=== PATIENT | male | born 1945 | race Caucasian/White ===

== ENCOUNTER 2018-05-06 17:12 | Observation (INO) | payer MEDICARE ==
[2018-05-06] MEDS ORDERED: Ondansetron 4 MG/2 ML SDV IVPUSH ONE (17:24)
--- NOTE | 2018-05-06 17:45 | EDM.PDOC ---
ED HPI GENERAL MEDICAL PROBLEM - General Chief Complaint: Fever Stated Complaint: [facility] Time Seen by Provider: 05/06/18 17:30 Source of Information: Reports: Patient, EMS Notes Reviewed, RN Notes Reviewed History Limitations: Reports: No Limitations - History of Present Illness INITIAL COMMENTS - FREE TEXT/NARRATIVE: Patient is a 72 year old male resident of [facility], who presents to the ED via [facility] for the evaluation of a fever/vomiting. [place] notes state that this started this morning. The patient notes that this started this afternoon. He has had 2-3 big emesis episodes since then. He has not been able to keep much for food or fluids. He states that his last bowel movement was yesterday and this was normal for him. He states that he has been peeing okay as well. He denies chest pain, shortness of breath, cough, abdominal pain. He does admit to nausea/vomiting, and was told by nursing staff that he had a fever , but he does not feel as if he has a fever. He states that he has not had any recent sick contacts, even living in a [place]. He states that he has never had any abdominal surgeries, so he still has his gallbladder and appendix. - Related Data Allergies Allergy/AdvReac Type Severity Reaction Status Date / Time No Known Allergies Allergy Verified 05/07/18 02:02 Home Meds: Home Meds Acetaminophen [Tylenol] 650 mg PO BEDTIME 01/19/15 [History] Acetaminophen [Tylenol] 650 mg PO BID 01/19/15 [History] Apixaban [Eliquis] 5 mg PO BID 01/19/15 [History] Carvedilol 12.5 mg PO BID 01/19/15 [History] Cholecalciferol (Vitamin D3) [Vitamin D3] 5,000 unit PO DAILY 01/19/15 [History] DULoxetine [Cymbalta] 90 mg PO DAILY 01/19/15 [History] Fenofibrate Nanocrystallized [Tricor] 145 mg PO DAILY 01/19/15 [History] Ferrous Gluconate 324 mg PO DAILY 01/19/15 [History] Finasteride [Proscar] 5 mg PO BEDTIME 01/19/15 [History] Furosemide 40 mg PO BID 01/19/15 [History] L Acidophil/B Lactis/B Longum [Florajen3] 460 mg PO DAILY 01/19/15 [History] Multivitamin [Daily Multiple Vitamin] 1 tab PO DAILY 01/19/15 [History] Potassium Chloride [Klor-Con] 20 meq PO DAILY 01/19/15 [History] Simvastatin [Zocor] 20 mg PO BEDTIME 01/19/15 [History] Spironolactone 50 mg PO DAILY 01/19/15 [History] Tamsulosin [Flomax] 0.4 mg PO BEDTIME 01/19/15 [History] Digoxin [Lanoxin] 125 mcg PO DAILY 01/17/18 [History] Lisinopril 5 mg PO DAILY 01/17/18 [History] Bisacodyl [Dulcolax] 5 mg PO DAILY PRN #30 tablet 01/21/18 [Rx] Docusate Sodium [Colace] 100 mg PO BID PRN #30 01/21/18 [Rx] Gabapentin [Neurontin] 300 mg PO BEDTIME #30 capsule 01/21/18 [Rx] glipiZIDE [Glucotrol XL] 2.5 mg PO BID #60 tab.er 01/21/18 [Rx] Aspirin [Adult Aspirin] 81 mg PO DAILY 05/07/18 [History] Past Medical History Cardiovascular History: Reports: Heart Failure, High Cholesterol, Hypertension, PVD, SOB on Exertion, Other (See Below) Genitourinary History: Reports: BPH, Prostate Disorder, Urinary Incontinence Psychiatric History: Reports: Depression Endocrine/Metabolic History: Reports: Diabetes, Type II Dermatologic History: Reports: Other (See Below) Other Dermatologic History: MRSA infection R) foot - Infectious Disease History Infectious Disease History: Reports: Chicken Pox, Measles, MRSA, Mumps, Rubella , Scarlet Fever Social & Family History - Family History Family Medical History: Noncontributory - Tobacco Use Smoking Status *Q: Never Smoker - Caffeine Use Caffeine Use: Reports: None - Recreational Drug Use Recreational Drug Use: No - Living Situation & Occupation Living situation: Reports: Single, Alone, Other Occupation: Retired ED ROS ENT - Review of Systems Review Of Systems: See Below Constitutional: Reports: Fever. Denies: Chills, Malaise, Weakness HEENT: Reports: No Symptoms Respiratory: Reports: No Symptoms Cardiovascular: Reports: No Symptoms Endocrine: Reports: No Symptoms GI/Abdominal: Reports: Nausea, Vomiting. Denies: Abdominal Pain, Constipation, Diarrhea, Decreased Appetite : Reports: No Symptoms Musculoskeletal: Reports: No Symptoms Skin: Reports: No Symptoms Neurological: Reports: No Symptoms Psychiatric: Reports: No Symptoms Hematologic/Lymphatic: Reports: No Symptoms Immunologic: Reports: No Symptoms ED EXAM, ENT - Physical Exam Exam: See Below Exam Limited By: No Limitations General Appearance: Alert, WD/WN, No Apparent Distress Eye Exam: Bilateral Eye: EOMI, Normal Inspection, PERRL Ears: Normal External Exam Nose: Normal Inspection Mouth/Throat: Normal Inspection, Normal Oropharynx, Normal Teeth Head: Atraumatic, Normocephalic Neck: Normal Inspection Respiratory/Chest: No Respiratory Distress, Lungs Clear, Normal Breath Sounds, No Accessory Muscle Use, Chest Non-Tender Cardiovascular: Normal Peripheral Pulses, Regular Rate, Rhythm, No JVD, No Murmur GI/Abdominal: Normal Bowel Sounds, Soft, Non-Tender, No Distention, No Mass Extremities: Normal Inspection, Normal Capillary Refill, Pedal Edema (bilateral pedal edema, 2+ pitting) Neurological: Alert, Oriented, Normal Cognition, No Motor/Sensory Deficits Psychiatric: Normal Affect, Normal Mood Skin: Warm, Dry, Intact, Normal Color, Other (several darkened ring like lesions diffusely scattered over his arms, he states this is normal and doesn't want to talk about it.) EKG INTERPRETATION EKG Date: 05/06/18 Time: 21:04 Rhythm: A-Fib Rate (Beats/Min): 88 (calcuated rate of 60-105) [place]: Normal P-Wave: Present QRS: Normal ST-T: Normal QT: Normal Comparison: Other: (previous EKG was looked at and he atrial fibrillation is not new to this patient.) EKG Interpretation Comments: reviewed with Dr. Vera Course - Vital Signs Last Recorded V/S: Last Vital Signs Temp 97.5 F 05/07/18 14:50 Pulse 106 H 05/07/18 14:50 Resp 16 05/07/18 14:50 BP 113/53 L 05/07/18 14:50 Pulse Ox 96 05/07/18 14:50 - Orders/Labs/Meds Orders: Active Orders 24 hr Category Date Time Status Urinary Catheter Insertion [Insert Urinary Catheter] [ Care 05/06/18 19:35 Ordered OM.PC] Stat CULTURE URINE [RM] Stat Lab 05/06/18 19:35 Results Medication Orders Acetaminophen (Tylenol) 650 mg PO Q4H PRN PRN Reason: Pain/Fever Apixaban (Eliquis) 5 mg PO BID [facility] Aspirin (Halfprin) 81 mg PO DAILY [facility] Last Admin: 05/07/18 16:45 Dose: 81 mg Carvedilol (Coreg) 12.5 mg PO BID [facility] Digoxin (Lanoxin) 125 mcg PO DAILY@1200 [facility] Duloxetine HCl (Cymbalta) 90 mg PO DAILY [facility] Enoxaparin Sodium (Lovenox) 40 mg SUBCUT Q24H [facility] Last Admin: 05/07/18 09:05 Dose: 40 mg Fenofibrate (Tricor) 145 mg PO DAILY [facility] Finasteride (Proscar) 5 mg PO BEDTIME [facility] Gabapentin (Neurontin) 300 mg PO BEDTIME [facility] Glipizide (Glucotrol Xl) 2.5 mg PO BID [facility] Piperacillin Sod/Tazobactam (Sod 4.5 gm/ Sodium Chloride) 100 mls @ 25 mls/hr IV Q8H [facility] Last Admin: 05/07/18 12:15 Dose: 25 mls/hr Insulin Human Lispro (Humalog) 0 unit SUBCUT QIDACANDBED [facility]; Protocol Last Admin: 05/07/18 17:44 Dose: 8 units Admin: 05/07/18 12:16 Dose: 6 units Admin: 05/07/18 09:12 Dose: 4 units Metoprolol Tartrate (Lopressor) 5 mg IVPUSH Q6H PRN PRN Reason: HR>110 Non-Formulary Medication (Ferrous Gluconate [Ferrous Gluconate]) 324 mg PO DAILY [facility] Non-Formulary Medication (L Acidophil/B Lactis/B Longum [Florajen3]) 460 mg PO DAILY [facility] Ondansetron HCl (Zofran) 4 mg IVPUSH Q8H PRN PRN Reason: Nausea Simvastatin (Zocor) 20 mg PO BEDTIME [facility] Spironolactone (Aldactone) 50 mg PO DAILY [facility] Last Admin: 05/07/18 17:45 Dose: 0.4 mg Labs: Laboratory Tests 05/06/18 05/06/18 05/06/18 Range/Units 17:38 17:38 17:38 WBC 19.60 H (4.23-9.07) K/mm3 RBC 4.43 L (4.63-6.08) M/mm3 Hgb 13.0 L (13.7-17.5) gm/L Hct 40.4 (40.1-51.0) % MCV 91.2 (79.0-92.2) fl MCH 29.3 (25.7-32.2) pg MCHC 32.2 (32.2-35.5) g/dl RDW Std Deviation 44.4 H (35.1-43.9) fL Plt Count 149 L (163-337) K/mm3 MPV 12.2 (9.4-12.3) fl Neutrophils % (Manual) 89 H (40-60) % Band Neutrophils % 4 (0-10) % Lymphocytes % (Manual) 3 L (20-40) % Atypical Lymphs % 0 % Monocytes % (Manual) 4 (2-10) % Eosinophils % (Manual) 0 L (0.8-7.0) % Basophils % (Manual) 0 L (0.2-1.2) Platelet Estimate Adequate RBC Morph Comment Normal D-Dimer, Quantitative (0.19-0.50) mg/L Sodium 136 (136-145) mEq/L Potassium 4.8 (3.5-5.1) mEq/L Chloride 99 (98-107) mEq/L Carbon Dioxide 26 (21-32) mEq/L Anion Gap 15.8 H (5-15) BUN 34 H (7-18) mg/dL Creatinine 1.5 H (0.7-1.3) mg/dL Est Cr Clr Drug Dosing 59.86 mL/min Estimated GFR (MDRD) 46 (>60) mL/min BUN/Creatinine Ratio 22.7 H (14-18) Glucose 284 H (83-115) mg/dL Lactic Acid (0.4-2.0) mmol/L Calcium 9.5 (8.5-10.1) mg/dL Magnesium 2.0 (1.8-2.4) mg/dl Total Bilirubin 0.7 (0.2-1.0) mg/dL AST 32 (15-37) U/L ALT 37 (16-63) U/L Alkaline Phosphatase 62 (46-116) U/L Total Protein 7.2 (6.4-8.2) g/dl Albumin 3.5 (3.4-5.0) g/dl Globulin 3.7 gm/dL Albumin/Globulin Ratio 1.0 (1-2) Urine Color (Yellow) Urine Appearance (Clear) Urine pH (5.0-8.0) Ur Specific [place] (1.005-1.030) Urine Protein (Negative) Urine Glucose (UA) (Negative) Urine Ketones (Negative) Urine Occult Blood (Negative) Urine Nitrite (Negative) Urine Bilirubin (Negative) Urine Urobilinogen (0.2-1.0) Ur Leukocyte Esterase (Negative) Urine RBC (0-5) /hpf Urine WBC (0-5) /hpf Ur Epithelial Cells (0-5) /hpf Urine Bacteria (FEW) /hpf Hyaline Casts (0-5) /lpf Urine Mucus (FEW) /hpf Mycoplasma pneumon IgM Negative (NEGATIVE) 05/06/18 05/06/18 05/06/18 Range/Units 19:35 20:08 22:20 WBC (4.23-9.07) K/mm3 RBC (4.63-6.08) M/mm3 Hgb (13.7-17.5) gm/L Hct (40.1-51.0) % MCV (79.0-92.2) fl MCH (25.7-32.2) pg MCHC (32.2-35.5) g/dl RDW Std Deviation (35.1-43.9) fL Plt Count (163-337) K/mm3 MPV (9.4-12.3) fl Neutrophils % (Manual) (40-60) % Band Neutrophils % (0-10) % Lymphocytes % (Manual) (20-40) % Atypical Lymphs % % Monocytes % (Manual) (2-10) % Eosinophils % (Manual) (0.8-7.0) % Basophils % (Manual) (0.2-1.2) Platelet Estimate RBC Morph Comment D-Dimer, Quantitative 0.44 (0.19-0.50) mg/L Sodium (136-145) mEq/L Potassium (3.5-5.1) mEq/L Chloride (98-107) mEq/L Carbon Dioxide (21-32) mEq/L Anion Gap (5-15) BUN (7-18) mg/dL Creatinine (0.7-1.3) mg/dL Est Cr Clr Drug Dosing mL/min Estimated GFR (MDRD) (>60) mL/min BUN/Creatinine Ratio (14-18) Glucose (83-115) mg/dL Lactic Acid 2.2 H (0.4-2.0) mmol/L Calcium (8.5-10.1) mg/dL Magnesium (1.8-2.4) mg/dl Total Bilirubin (0.2-1.0) mg/dL AST (15-37) U/L ALT (16-63) U/L Alkaline Phosphatase (46-116) U/L Total Protein (6.4-8.2) g/dl Albumin (3.4-5.0) g/dl Globulin gm/dL Albumin/Globulin Ratio (1-2) Urine Color Yellow (Yellow) Urine Appearance Clear (Clear) Urine pH 5.5 (5.0-8.0) Ur Specific [place] 1.025 (1.005-1.030) Urine Protein Negative (Negative) Urine Glucose (UA) 1+ H (Negative) Urine Ketones Negative (Negative) Urine Occult Blood Negative (Negative) Urine Nitrite Negative (Negative) Urine Bilirubin Negative (Negative) Urine Urobilinogen 0.2 (0.2-1.0) Ur Leukocyte Esterase Negative (Negative) Urine RBC 0-5 (0-5) /hpf Urine WBC 0-5 (0-5) /hpf Ur Epithelial Cells Not seen (0-5) /hpf Urine Bacteria Few (FEW) /hpf Hyaline Casts 0-5 (0-5) /lpf Urine Mucus Few (FEW) /hpf Mycoplasma pneumon IgM (NEGATIVE) Meds: Medications Generic Name Dose Route Start Last Admin Trade Name Freq PRN Reason Stop Dose Admin Acetaminophen 650 mg 05/07/18 03:19 Tylenol PO Q4H PRN Pain/Fever Apixaban 5 mg 05/07/18 21:00 Eliquis PO BID [facility] Aspirin 81 mg 05/07/18 15:00 05/07/18 16:45 Halfprin PO 81 mg DAILY [facility] Administration Carvedilol 12.5 mg 05/07/18 21:00 Coreg PO BID [facility] Digoxin 125 mcg 05/08/18 12:00 Lanoxin PO DAILY@1200 [facility] Duloxetine HCl 90 mg 05/08/18 09:00 Cymbalta PO DAILY [facility] Enoxaparin Sodium 40 mg 05/07/18 09:00 05/07/18 09:05 Lovenox SUBCUT 40 mg Q24H [facility] Administration Fenofibrate 145 mg 05/08/18 09:00 Tricor PO DAILY [facility] Finasteride 5 mg 05/07/18 21:00 Proscar PO BEDTIME [facility] Gabapentin 300 mg 05/07/18 21:00 Neurontin PO BEDTIME [facility] Glipizide 2.5 mg 05/07/18 21:00 Glucotrol Xl PO BID [facility] Piperacillin Sod/Tazobactam 100 mls @ 25 mls/hr 05/07/18 13:00 05/07/18 12:15 Sod 4.5 gm/ Sodium Chloride IV 25 mls/hr Q8H [facility] Administration Insulin Human Lispro 0 unit 05/07/18 07:00 05/07/18 17:44 Humalog SUBCUT 8 units QIDACANDBED [facility] Administration Protocol Metoprolol Tartrate 5 mg 05/07/18 17:08 Lopressor IVPUSH Q6H PRN HR>110 Non-Formulary Medication 324 mg 05/08/18 09:00 Ferrous Gluconate [Ferrous Gluconate] PO DAILY [facility] Non-Formulary Medication 460 mg 05/08/18 09:00 L Acidophil/B Lactis/B Longum [Florajen3] PO DAILY [facility] Ondansetron HCl 4 mg 05/07/18 03:19 Zofran IVPUSH Q8H PRN Nausea Simvastatin 20 mg 05/07/18 21:00 Zocor PO BEDTIME [facility] Spironolactone 50 mg 05/08/18 09:00 Aldactone PO DAILY [facility] Tamsulosin HCl 0.4 mg 05/07/18 18:00 05/07/18 17:45 Flomax PO 0.4 mg BIDPC [facility] Administration Discontinued Medications Generic Name Dose Route Start Last Admin Trade Name Freq PRN Reason Stop Dose Admin Acetaminophen 650 mg 05/06/18 18:10 05/06/18 18:23 Tylenol PO 05/06/18 18:11 650 mg NOW ONE Administration Piperacillin Sod/Tazobactam 100 mls @ 200 mls/hr 05/06/18 20:24 05/06/18 21: 11 Sod 4.5 gm/ Sodium Chloride IV 05/06/18 20:53 200 mls/hr Q6H ONE Administration Sodium Chloride 1,000 mls @ 200 mls/hr 05/06/18 21:15 05/06/18 21:11 Normal Saline IV 200 mls/hr ASDIRECTED [place] Administration Sodium Chloride Confirm 05/06/18 21:04 05/07/18 00:20 Normal Saline Administered 05/06/18 21:05 Not Given Dose 100 mls @ as directed .ROUTE .STK-MED ONE Piperacillin Sod/Tazobactam 100 mls @ 200 mls/hr 05/07/18 03:00 05/07/18 09: 17 Sod 4.5 gm/ Sodium Chloride IV Not Given Q6H [place] Sodium Chloride 1,000 mls @ 200 mls/hr 05/06/18 23:45 Normal Saline IV ASDIRECTED [place] Sodium Chloride 1,000 mls @ 999 mls/hr 05/07/18 03:05 05/07/18 03:34 Normal Saline IV 05/07/18 04:05 999 mls/hr ONETIME ONE Administration Sodium Chloride 1,000 mls @ 150 mls/hr 05/07/18 04:15 05/07/18 04:49 Normal Saline IV 05/07/18 09:00 150 mls/hr ASDIRECTED [place] Administration Sodium Chloride 1,000 mls @ 75 mls/hr 05/07/18 09:00 05/07/18 12:39 Normal [place]ine IV 05/07/18 16:00 75 mls/hr ASDIRECTED [place] Administration Sodium Chloride Confirm 05/07/18 03:31 05/07/18 05:44 Normal [place] Administered 05/07/18 03:32 Not Given Dose 100 mls @ as directed .ROUTE .STK-MED ONE Iopamidol 100 ml 05/06/18 22:28 05/06/18 22:44 Isovue-300 (61%) IVPUSH 05/06/18 22:29 100 ml ONETIME ONE Administration Metoclopramide HCl 10 mg 05/06/18 19:04 05/06/18 19:10 Reglan IVPUSH 05/06/18 19:05 10 mg ONETIME ONE Administration Ondansetron HCl 4 mg 05/06/18 17:24 05/06/18 17:45 Zofran IVPUSH 05/06/18 17:25 4 mg ONETIME ONE Administration Piperacillin Sod/Tazobactam Sod Confirm 05/06/18 21:02 05/07/18 00:20 Piperacil-Tazobact Administered 05/06/18 21:03 Not Given Dose 4.5 gm .ROUTE .STK-MED ONE Piperacillin Sod/Tazobactam Sod Confirm 05/07/18 08:58 05/07/18 09:13 Piperacil-Tazobact Administered 05/07/18 08:59 4.5 gm Dose Administration 4.5 gm .ROUTE .STK-MED ONE Tamsulosin HCl 0.4 mg 05/07/18 21:00 Flomax PO BEDTIME [facility] - Re-Assessments/Exams Free Text/Narrative Re-Assessment/Exam: 05/06/18 17:53 Pt presents to the ED for the evaluation vomiting/fever that started today. Have ordered CBC, CMP, magnesium, Influenza screen, UA, CXR and Abdominal x-ray for further evaluation. 05/06/18 18:52 His POA has arrived and states that Ez is a DNR, and should not have extraordinary measures done to save his life. Influenza screen was negative, His WBC is elevated at 19. His CXR and abdomen X-ray is not impressive for any abnormality. These were reviewed with Dr. Lafleur. Official radiology read is pending. He has requested water and something to eat. I have given him water and told the nurse to try some carrington crackers with peanut butter to see if he can tolerate this. The POA has also made it known that he has had issues with his in the past and it was a urinary infection, but she also notes that he has a ulcer on the bottom of his right foot. I did examine this and it does not look reddened or infected at this point. I have ordered blood cultures x 2 and a lactic acid for evaluation of possible sepsis. 05/06/18 20:29 Source of the increased WBC is still unknown at this time, his UA was negative for infection. I did have Dr. Vera look at the sore on the patient's foot, and he does not think that this looks infected either. I have started him on Zosyn, as per Dr. Vera's recommendation in the meantime. I did re-examine his abdomen and did a more extensive look at his skin and he does not have any abdomen tenderness, nor can I find any other open sores to suggest a source of infection. I will call Dr. Ramachandran in consultation, as he cannot be sent home safely at this point. 05/06/18 20:47 Dr. Ramachandran is here to see the patient, she requested that a EKG, d-dimer, CRP, urine culture and a sputum culture if he is able, be ordered. She suggested that an oral or rectal temperature be obtained, and the possibility for abdomen CT. I did order IV fluids to be started at 200mLs/hr for the abdomen CT with contrast. At this time, Dr. Ramachandran has not given a definitive yes or no answer to admission to this hospital. 05/06/18 22:53 D-dimer is not elevated, and is 0.44. EKG demonstrated atrial fibrillation, but this is not new for the patient, Lactic acid is at 2.2. 05/06/18 23:33 CT was done and demonstrates: 1. Questionable cholelithiasis 2. Cystic structure lying adjacent to the common bile duct measuring 5.8cm. Differential considerations would include a choledochocele vs duplication cyst. 3. 9 mm nonobstructing stone mid aspect of left kidney, no hydronephrosis. 4. Enhancing fat containing nodule in the Right kidney measuring 2cm consistent with an angiomyolipoma. 5. Normal appearing appendix in right lower quadrant. Dr. Ramachandran was made aware of the CT results, she requested that I get a urology referral for the 9mm stone. I did get a hold of Dr. Srivastava in [place] and states that this can be done as an outpatient basis. Dr. Ramachandran has accepted the patient as Observation status, and requests that I order another dose of Zosyn Q6 from his last dose, and that he finish the bag of fluids he has already, and order another liter to start after that. Departure - Departure Time of Disposition: 23:30 Disposition: Refer to Observation Condition: Fair Clinical Impression: Elevated temperature due to infection - Discharge Information - My Orders Last 24 Hours: My Active Orders 05/06/18 19:35 Urinary Catheter Insertion [Insert Urinary Catheter] [OM.PC] Stat CULTURE URINE [RM] Stat - Assessment/Plan Last 24 Hours: My Active Orders 05/06/18 19:35 Urinary Catheter Insertion [Insert Urinary Catheter] [OM.PC] Stat CULTURE URINE [RM] Stat
[2018-05-06] MEDS ORDERED: Acetaminophen 325 MG Tab PO ONE (18:10)
[2018-05-06] MEDS ORDERED: Metoclopramide 10 MG/2 ML SDV IVPUSH ONE (19:04)
[2018-05-06] MEDS ORDERED: Piperacillin/Tazobactam 4.5 GM in Sodium Chloride 0.9% 100 ML IV ONE (20:24)
[2018-05-06] MEDS ORDERED: Piperacillin/Tazobactam 4.5 GM AdvVial ONE (21:02)
[2018-05-06] MEDS ORDERED: Sodium Chloride 0.9% 100 ML ONE (21:04)
[2018-05-06] MEDS ORDERED: Sodium Chloride 0.9% 1,000 ML IV SCH ×2 (21:15→23:45)
[2018-05-06] MEDS ORDERED: Iopamidol 612 MG/ML 100 ML Bottle IVPUSH ONE (22:28)
[2018-05-07] MEDS ORDERED: Sodium Chloride 0.9% 1,000 ML IV ONE (03:05)
[2018-05-07] MEDS ORDERED: Acetaminophen 325 MG Tab PO PRN (03:19)
[2018-05-07] MEDS ORDERED: Ondansetron 4 MG/2 ML SDV IVPUSH PRN (03:19)
[2018-05-07] MEDS ORDERED: Sodium Chloride 0.9% 100 ML ONE ×2 (03:31→09:01)
[2018-05-07] MEDS ORDERED: Sodium Chloride 0.9% 1,000 ML IV SCH ×2 (04:15→09:00)
[2018-05-07] MEDS: Piperacillin/Tazobactam 4.5 GM in Sodium Chloride 0.9% 100 ML IV SCH ×4 (04:50→22:20)
[2018-05-07] MEDS ORDERED: Piperacillin/Tazobactam 4.5 GM AdvVial ONE (08:58)
[2018-05-07] MEDS: Enoxaparin 40 MG/0.4 ML Syringe SUBCUT SCH (09:05)
[2018-05-07] MEDS: Insulin Lispro 100 UNIT/ML 10 ML VIAL SUBCUT SCH ×4 (09:12→22:19)
--- NOTE | 2018-05-07 10:10 | PCM.HP ---
H&P History of Present Illness - General Date of Service: 05/07/18 Admit Problem/Dx: Admission Diagnosis/Problem Admission Diagnosis/Problem Elevated temperature due to infection Source of Information: Patient, Provider History Limitations: Reports: No Limitations - History of Present Illness Initial Comments - Free Text/Narative: 72 year old male presented with nausea and reportedly a temporal fever of 102.0 F. This was documented in the ED, he requested a meal during his ED evaluation , and was able to tolerate it despite complaining of nausea/vomiting prior to admission. An infectious work up was initiated, and a CT of the abdomen/pelvis documented a renal stone, nonobstructive measuring 9 mm. The UA obtained was not suggestive of a UTI, or hematuria. He has not had difficulty passing urine. Lab results document an elevated WBCs, 19.6 with bands, 4%. The patient will be admitted as observation, code status is DNR. Onset of Symptoms: Reports: Gradual Symptom Onset Date: 05/06/18 Duration of Symptoms: Reports: Hour(s):, Getting Worse Location: Reports: Abdomen, Generalized Severity: Moderate Improves with: Reports: Medication Worsens with: Reports: None Associated Symptoms: Reports: Fever/Chills, Malaise, Nausea/Vomiting, Weakness - Related Data Allergies/Adverse Reactions: Allergies Allergy/AdvReac Type Severity Reaction Status Date / Time No Known Allergies Allergy Verified 05/07/18 02:02 Home Medications: Home Meds Acetaminophen [Tylenol] 650 mg PO BEDTIME 01/19/15 [History] Acetaminophen [Tylenol] 650 mg PO BID 01/19/15 [History] Apixaban [Eliquis] 5 mg PO BID 01/19/15 [History] Carvedilol 12.5 mg PO BID 01/19/15 [History] Cholecalciferol (Vitamin D3) [Vitamin D3] 5,000 unit PO DAILY 01/19/15 [History] DULoxetine [Cymbalta] 90 mg PO DAILY 01/19/15 [History] Fenofibrate Nanocrystallized [Tricor] 145 mg PO DAILY 01/19/15 [History] Ferrous Gluconate 324 mg PO DAILY 01/19/15 [History] Finasteride [Proscar] 5 mg PO BEDTIME 01/19/15 [History] Furosemide 40 mg PO BID 01/19/15 [History] L Acidophil/B Lactis/B Longum [Florajen3] 460 mg PO DAILY 01/19/15 [History] Multivitamin [Daily Multiple Vitamin] 1 tab PO DAILY 01/19/15 [History] Potassium Chloride [Klor-Con] 20 meq PO DAILY 01/19/15 [History] Simvastatin [Zocor] 20 mg PO BEDTIME 01/19/15 [History] Spironolactone 50 mg PO DAILY 01/19/15 [History] Tamsulosin [Flomax] 0.4 mg PO BEDTIME 01/19/15 [History] Digoxin [Lanoxin] 125 mcg PO DAILY 01/17/18 [History] Lisinopril 5 mg PO DAILY 01/17/18 [History] Bisacodyl [Dulcolax] 5 mg PO DAILY PRN #30 tablet 01/21/18 [Rx] Docusate Sodium [Colace] 100 mg PO BID PRN #30 01/21/18 [Rx] Gabapentin [Neurontin] 300 mg PO BEDTIME #30 capsule 01/21/18 [Rx] glipiZIDE [Glucotrol XL] 2.5 mg PO BID #60 tab.er 01/21/18 [Rx] Aspirin [Adult Aspirin] 81 mg PO DAILY 05/07/18 [History] Past Medical History Cardiovascular History: Reports: Heart Failure, High Cholesterol, Hypertension, PVD, SOB on Exertion, Other (See Below) Genitourinary History: Reports: BPH, Prostate Disorder, Urinary Incontinence Musculoskeletal History: Reports: Fracture Psychiatric History: Reports: Depression Endocrine/Metabolic History: Reports: Diabetes, Type II, Obesity/BMI 30+ Dermatologic History: Reports: Other (See Below) Other Dermatologic History: MRSA infection R) foot - Infectious Disease History Infectious Disease History: Reports: Chicken Pox, Measles, MRSA, Mumps, Rubella , Scarlet Fever - Past Surgical History Head Surgeries/Procedures: Reports: None Cardiovascular Surgical History: Reports: None Male Surgical History: Reports: None Endocrine Surgical History: Reports: None Musculoskeletal Surgical History: Reports: None Other Musculoskeletal Surgeries/Procedures:: hip surgery after fx Social & Family History - Family History Family Medical History: Noncontributory - Tobacco Use Smoking Status *Q: Unknown Ever Smoked Second Hand Smoke Exposure: No - Caffeine Use Caffeine Use: Reports: None - Recreational Drug Use Recreational Drug Use: No - Living Situation & Occupation Living situation: Reports: Single, Alone, Other Occupation: Retired H&P Review of Systems - Review of Systems: Review Of Systems: See Below General: Reports: Fever, Malaise, Weakness HEENT: Reports: No Symptoms Pulmonary: Reports: No Symptoms Cardiovascular: Reports: No Symptoms Gastrointestinal: Reports: Nausea, Vomiting Genitourinary: Reports: No Symptoms Musculoskeletal: Reports: No Symptoms Skin: Reports: No Symptoms Psychiatric: Reports: No Symptoms Neurological: Reports: No Symptoms Hematologic/Lymphatic: Reports: No Symptoms Immunologic: Reports: No Symptoms Exam - Exam Exam: See Below - Vital Signs Vital Signs: Last Vital Signs Temp 36.3 C 05/07/18 08:03 Pulse 92 05/07/18 08:03 Resp 16 05/07/18 08:03 BP 103/50 L 05/07/18 08:03 Pulse Ox 97 05/07/18 08:03 Weight: 137.756 kg - Exam General: Alert, Oriented, Cooperative HEENT: Conjunctiva Clear, Nares Patent, Normal Nasal Septum, Pupils Equal, Pupils Reactive Neck: Trachea Midline Lungs: Normal Respiratory Effort Cardiovascular: Regular Rate, Irregular Rhythm GI/Abdominal Exam: Normal Bowel Sounds, Soft, Non-Tender, No Organomegaly, No Distention (Male) Exam: Deferred Rectal (Males) Exam: Deferred Back Exam: Normal Inspection Extremities: Normal Inspection, Non-Tender, Normal Capillary Refill, Pedal Edema Skin: Warm Neurological: Cranial Nerves Intact, Normal Speech Neuro Extensive - Mental Status: Alert, Oriented x3, Normal Mood/Affect, Normal Cognition, Memory Intact Neuro Extensive - Motor, Sensory, Reflexes: CN II-XII Intact Psychiatric: Alert, Normal Affect, Normal Mood - Patient Data Lab Results Last 24 hrs: Laboratory Results - last 24 hr 05/06/18 05/06/18 05/06/18 Range/Units 17:38 17:38 17:38 WBC 19.60 H (4.23-9.07) K/mm3 RBC 4.43 L (4.63-6.08) M/mm3 Hgb 13.0 L (13.7-17.5) gm/L Hct 40.4 (40.1-51.0) % MCV 91.2 (79.0-92.2) fl MCH 29.3 (25.7-32.2) pg MCHC 32.2 (32.2-35.5) g/dl RDW Std Deviation 44.4 H (35.1-43.9) fL Plt Count 149 L (163-337) K/mm3 MPV 12.2 (9.4-12.3) fl Neut % (Auto) (34.0-67.9) % Lymph % (Auto) (21.8-53.1) % [place] % (Auto) (5.3-12.2) % Eos % (Auto) (0.8-7.0) Baso % (Auto) (0.1-1.2) % Neut # (Auto) (1.78-5.38) K/mm3 Lymph # (Auto) (1.32-3.57) K/mm3 [place] # (Auto) (0.30-0.82) K/mm3 Eos # (Auto) (0.04-0.54) K/mm3 Baso # (Auto) (0.01-0.08) K/mm3 Neutrophils % (Manual) 89 H (40-60) % Band Neutrophils % 4 (0-10) % Lymphocytes % (Manual) 3 L (20-40) % Atypical Lymphs % 0 % Monocytes % (Manual) 4 (2-10) % Eosinophils % (Manual) 0 L (0.8-7.0) % Basophils % (Manual) 0 L (0.2-1.2) Manual Slide Review Platelet Estimate Adequate RBC Morph Comment Normal D-Dimer, Quantitative (0.19-0.50) mg/L Sodium 136 (136-145) mEq/L Potassium 4.8 (3.5-5.1) mEq/L Chloride 99 (98-107) mEq/L Carbon Dioxide 26 (21-32) mEq/L Anion Gap 15.8 H (5-15) BUN 34 H (7-18) mg/dL Creatinine 1.5 H (0.7-1.3) mg/dL Est Cr Clr Drug Dosing 59.86 mL/min Estimated GFR (MDRD) 46 (>60) mL/min BUN/Creatinine Ratio 22.7 H (14-18) Glucose 284 H (83-115) mg/dL POC Glucose (83-110) mg/dL Lactic Acid (0.4-2.0) mmol/L Calcium 9.5 (8.5-10.1) mg/dL Magnesium 2.0 (1.8-2.4) mg/dl Total Bilirubin 0.7 (0.2-1.0) mg/dL AST 32 (15-37) U/L ALT 37 (16-63) U/L Alkaline Phosphatase 62 (46-116) U/L C-Reactive Protein (<1.0) mg/dL Total Protein 7.2 (6.4-8.2) g/dl Albumin 3.5 (3.4-5.0) g/dl Globulin 3.7 gm/dL Albumin/Globulin Ratio 1.0 (1-2) Urine Color (Yellow) Urine Appearance (Clear) Urine pH (5.0-8.0) Ur Specific [place] (1.005-1.030) Urine Protein (Negative) Urine Glucose (UA) (Negative) Urine Ketones (Negative) Urine Occult Blood (Negative) Urine Nitrite (Negative) Urine Bilirubin (Negative) Urine Urobilinogen (0.2-1.0) Ur Leukocyte Esterase (Negative) Urine RBC (0-5) /hpf Urine WBC (0-5) /hpf Ur Epithelial Cells (0-5) /hpf Urine Bacteria (FEW) /hpf Hyaline Casts (0-5) /lpf Urine Mucus (FEW) /hpf Mycoplasma pneumon IgM Negative (NEGATIVE) MRSA (PCR) 05/06/18 05/06/18 05/06/18 Range/Units 19:35 20:08 22:20 WBC (4.23-9.07) K/mm3 RBC (4.63-6.08) M/mm3 Hgb (13.7-17.5) gm/L Hct (40.1-51.0) % MCV (79.0-92.2) fl MCH (25.7-32.2) pg MCHC (32.2-35.5) g/dl RDW Std Deviation (35.1-43.9) fL Plt Count (163-337) K/mm3 MPV (9.4-12.3) fl Neut % (Auto) (34.0-67.9) % Lymph % (Auto) (21.8-53.1) % [place] % (Auto) (5.3-12.2) % Eos % (Auto) (0.8-7.0) Baso % (Auto) (0.1-1.2) % Neut # (Auto) (1.78-5.38) K/mm3 Lymph # (Auto) (1.32-3.57) K/mm3 [place] # (Auto) (0.30-0.82) K/mm3 Eos # (Auto) (0.04-0.54) K/mm3 Baso # (Auto) (0.01-0.08) K/mm3 Neutrophils % (Manual) (40-60) % Band Neutrophils % (0-10) % Lymphocytes % (Manual) (20-40) % Atypical Lymphs % % Monocytes % (Manual) (2-10) % Eosinophils % (Manual) (0.8-7.0) % Basophils % (Manual) (0.2-1.2) Manual Slide Review Platelet Estimate RBC Morph Comment D-Dimer, Quantitative 0.44 (0.19-0.50) mg/L Sodium (136-145) mEq/L Potassium (3.5-5.1) mEq/L Chloride (98-107) mEq/L Carbon Dioxide (21-32) mEq/L Anion Gap (5-15) BUN (7-18) mg/dL Creatinine (0.7-1.3) mg/dL Est Cr Clr Drug Dosing mL/min Estimated GFR (MDRD) (>60) mL/min BUN/Creatinine Ratio (14-18) Glucose (83-115) mg/dL POC Glucose (83-110) mg/dL Lactic Acid 2.2 H (0.4-2.0) mmol/L Calcium (8.5-10.1) mg/dL Magnesium (1.8-2.4) mg/dl Total Bilirubin (0.2-1.0) mg/dL AST (15-37) U/L ALT (16-63) U/L Alkaline Phosphatase (46-116) U/L C-Reactive Protein (<1.0) mg/dL Total Protein (6.4-8.2) g/dl Albumin (3.4-5.0) g/dl Globulin gm/dL Albumin/Globulin Ratio (1-2) Urine Color Yellow (Yellow) Urine Appearance Clear (Clear) Urine pH 5.5 (5.0-8.0) Ur Specific [place] 1.025 (1.005-1.030) Urine Protein Negative (Negative) Urine Glucose (UA) 1+ H (Negative) Urine Ketones Negative (Negative) Urine Occult Blood Negative (Negative) Urine Nitrite Negative (Negative) Urine Bilirubin Negative (Negative) Urine Urobilinogen 0.2 (0.2-1.0) Ur Leukocyte Esterase Negative (Negative) Urine RBC 0-5 (0-5) /hpf Urine WBC 0-5 (0-5) /hpf Ur Epithelial Cells Not seen (0-5) /hpf Urine Bacteria Few (FEW) /hpf Hyaline Casts 0-5 (0-5) /lpf Urine Mucus Few (FEW) /hpf Mycoplasma pneumon IgM (NEGATIVE) MRSA (PCR) 05/07/18 05/07/18 05/07/18 Range/Units 01:12 02:00 04:51 WBC 12.25 H (4.23-9.07) K/mm3 RBC 3.58 L (4.63-6.08) M/mm3 Hgb 10.6 L (13.7-17.5) gm/L Hct 32.9 L (40.1-51.0) % MCV 91.9 (79.0-92.2) fl MCH 29.6 (25.7-32.2) pg MCHC 32.2 (32.2-35.5) g/dl RDW Std Deviation 44.0 H (35.1-43.9) fL Plt Count 116 L (163-337) K/mm3 MPV 11.8 (9.4-12.3) fl Neut % (Auto) 89.7 H (34.0-67.9) % Lymph % (Auto) 4.9 L (21.8-53.1) % [place] % (Auto) 4.8 L (5.3-12.2) % Eos % (Auto) 0.2 L (0.8-7.0) Baso % (Auto) 0.2 (0.1-1.2) % Neut # (Auto) 10.99 H (1.78-5.38) K/mm3 Lymph # (Auto) 0.60 L (1.32-3.57) K/mm3 [place] # (Auto) 0.59 (0.30-0.82) K/mm3 Eos # (Auto) 0.02 L (0.04-0.54) K/mm3 Baso # (Auto) 0.02 (0.01-0.08) K/mm3 Neutrophils % (Manual) (40-60) % Band Neutrophils % (0-10) % Lymphocytes % (Manual) (20-40) % Atypical Lymphs % % Monocytes % (Manual) (2-10) % Eosinophils % (Manual) (0.8-7.0) % Basophils % (Manual) (0.2-1.2) Manual Slide Review Abnormal smear Platelet Estimate RBC Morph Comment D-Dimer, Quantitative (0.19-0.50) mg/L Sodium (136-145) mEq/L Potassium (3.5-5.1) mEq/L Chloride (98-107) mEq/L Carbon Dioxide (21-32) mEq/L Anion Gap (5-15) BUN (7-18) mg/dL Creatinine (0.7-1.3) mg/dL Est Cr Clr Drug Dosing mL/min Estimated GFR (MDRD) (>60) mL/min BUN/Creatinine Ratio (14-18) Glucose (83-115) mg/dL POC Glucose (83-110) mg/dL Lactic Acid 1.9 (0.4-2.0) mmol/L Calcium (8.5-10.1) mg/dL Magnesium (1.8-2.4) mg/dl Total Bilirubin (0.2-1.0) mg/dL AST (15-37) U/L ALT (16-63) U/L Alkaline Phosphatase (46-116) U/L C-Reactive Protein (<1.0) mg/dL Total Protein (6.4-8.2) g/dl Albumin (3.4-5.0) g/dl Globulin gm/dL Albumin/Globulin Ratio (1-2) Urine Color (Yellow) Urine Appearance (Clear) Urine pH (5.0-8.0) Ur Specific [place] (1.005-1.030) Urine Protein (Negative) Urine Glucose (UA) (Negative) Urine Ketones (Negative) Urine Occult Blood (Negative) Urine Nitrite (Negative) Urine Bilirubin (Negative) Urine Urobilinogen (0.2-1.0) Ur Leukocyte Esterase (Negative) Urine RBC (0-5) /hpf Urine WBC (0-5) /hpf Ur Epithelial Cells (0-5) /hpf Urine Bacteria (FEW) /hpf Hyaline Casts (0-5) /lpf Urine Mucus (FEW) /hpf Mycoplasma pneumon IgM (NEGATIVE) MRSA (PCR) Negative 05/07/18 05/07/18 Range/Units 04:57 06:35 WBC (4.23-9.07) K/mm3 RBC (4.63-6.08) M/mm3 Hgb (13.7-17.5) gm/L Hct (40.1-51.0) % MCV (79.0-92.2) fl MCH (25.7-32.2) pg MCHC (32.2-35.5) g/dl RDW Std Deviation (35.1-43.9) fL Plt Count (163-337) K/mm3 MPV (9.4-12.3) fl Neut % (Auto) (34.0-67.9) % Lymph % (Auto) (21.8-53.1) % [place] % (Auto) (5.3-12.2) % Eos % (Auto) (0.8-7.0) Baso % (Auto) (0.1-1.2) % Neut # (Auto) (1.78-5.38) K/mm3 Lymph # (Auto) (1.32-3.57) K/mm3 [place] # (Auto) (0.30-0.82) K/mm3 Eos # (Auto) (0.04-0.54) K/mm3 Baso # (Auto) (0.01-0.08) K/mm3 Neutrophils % (Manual) (40-60) % Band Neutrophils % (0-10) % Lymphocytes % (Manual) (20-40) % Atypical Lymphs % % Monocytes % (Manual) (2-10) % Eosinophils % (Manual) (0.8-7.0) % Basophils % (Manual) (0.2-1.2) Manual Slide Review Platelet Estimate RBC Morph Comment D-Dimer, Quantitative (0.19-0.50) mg/L Sodium 134 L (136-145) mEq/L Potassium 3.9 (3.5-5.1) mEq/L Chloride 100 (98-107) mEq/L Carbon Dioxide 26 (21-32) mEq/L Anion Gap 11.9 (5-15) BUN 31 H (7-18) mg/dL Creatinine 1.5 H (0.7-1.3) mg/dL Est Cr Clr Drug Dosing 59.86 mL/min Estimated GFR (MDRD) 46 (>60) mL/min BUN/Creatinine Ratio 20.7 H (14-18) Glucose 206 H (83-115) mg/dL POC Glucose 230 H (83-110) mg/dL Lactic Acid (0.4-2.0) mmol/L Calcium 8.6 (8.5-10.1) mg/dL Magnesium 1.9 (1.8-2.4) mg/dl Total Bilirubin (0.2-1.0) mg/dL AST (15-37) U/L ALT (16-63) U/L Alkaline Phosphatase (46-116) U/L C-Reactive Protein 16.8 H* (<1.0) mg/dL Total Protein (6.4-8.2) g/dl Albumin (3.4-5.0) g/dl Globulin gm/dL Albumin/Globulin Ratio (1-2) Urine Color (Yellow) Urine Appearance (Clear) Urine pH (5.0-8.0) Ur Specific [place] (1.005-1.030) Urine Protein (Negative) Urine Glucose (UA) (Negative) Urine Ketones (Negative) Urine Occult Blood (Negative) Urine Nitrite (Negative) Urine Bilirubin (Negative) Urine Urobilinogen (0.2-1.0) Ur Leukocyte Esterase (Negative) Urine RBC (0-5) /hpf Urine WBC (0-5) /hpf Ur Epithelial Cells (0-5) /hpf Urine Bacteria (FEW) /hpf Hyaline Casts (0-5) /lpf Urine Mucus (FEW) /hpf Mycoplasma pneumon IgM (NEGATIVE) MRSA (PCR) Result Diagrams: 05/07/18 04:51 05/07/18 04:57 Mickey Results Last 24 hrs: Microbiology 05/06/18 19:35 Urine Culture - Preliminary Urine, Catheterized NO GROWTH AFTER 1 DAY 05/06/18 19:20 Anaerobic Blood Culture - Final Blood - Venous - Lab Draw 05/06/18 19:15 Anaerobic Blood Culture - Final Blood - Venous 05/06/18 17:35 Influenza Type A Antigen Screen - Final Nasal Aspirate, Right NEGATIVE INFLUENZA A VIRUS AG Influenza Type B Antigen Screen - Final NEGATIVE INFLUENZA B VIRUS AG - Problem List (1) Atrial fibrillation SNOMED Code(s): 68801362 ICD Code: I48.91 - UNSPECIFIED ATRIAL FIBRILLATION Status: Acute Current Visit: Yes (2) Nephrolithiasis SNOMED Code(s): 45583037 ICD Code: N20.0 - CALCULUS OF KIDNEY Status: Acute Current Visit: Yes (3) Nausea & vomiting SNOMED Code(s): 16712245 ICD Code: R11.2 - NAUSEA WITH VOMITING, UNSPECIFIED Status: Acute Current Visit: Yes (4) Hypertension SNOMED Code(s): 07639262 ICD Code: I10 - ESSENTIAL (PRIMARY) HYPERTENSION Status: Acute Current Visit: Yes (5) Hyperlipidemia SNOMED Code(s): 10605827 ICD Code: E78.5 - HYPERLIPIDEMIA, UNSPECIFIED Status: Acute Current Visit : Yes (6) PVD (peripheral vascular disease) SNOMED Code(s): 778022447 ICD Code: I73.9 - PERIPHERAL VASCULAR DISEASE, UNSPECIFIED Status: Acute Current Visit: Yes (7) MRSA carrier SNOMED Code(s): 944845743 ICD Code: Z22.322 - CARRIER OR SUSPECTED CARRIER OF METHICILLIN RESIS STAPH Status: Acute Current Visit: Yes (8) BPH (benign prostatic hyperplasia) SNOMED Code(s): 256723492 ICD Code: N40.0 - BENIGN PROSTATIC HYPERPLASIA WITHOUT LOWER URINRY TRACT SYMP Status: Acute Current Visit: Yes (9) Type 2 diabetes mellitus SNOMED Code(s): 28880610 ICD Code: E11.9 - TYPE 2 DIABETES MELLITUS WITHOUT COMPLICATIONS Status: Acute Priority: High Current Visit: No Qualifiers: Diabetes mellitus intermediate insulin use: with intermediate use Diabetes mellitus complication status: with kidney complications Diabetes mellitus complication detail: with chronic kidney disease Chronic kidney disease stage : stage 3 (moderate) Qualified Code(s): E11.22 - Type 2 diabetes mellitus with diabetic chronic kidney disease; N18.3 - Chronic kidney disease, stage 3 ( moderate); Z79.4 - MCC (current) use of insulin (10) Chronic venous insufficiency SNOMED Code(s): 09345182, 03217471 ICD Code: I87.2 - VENOUS INSUFFICIENCY (CHRONIC) (PERIPHERAL) Status: Chronic Priority: Medium Current Visit: No Problem List Initiated/Reviewed/Updated: Yes Orders Last 24hrs: Active Orders 24 hr Category Date Time Status Patient Status [ADT] Routine ADT 05/07/18 04:09 Active Activity as Tolerated [RC] .Routine Care 05/07/18 03:26 Active Blood Glucose Check, Bedside [RC] WITHMEALSANDBED Care 05/07/18 07:00 Active Urinary Catheter Insertion [Insert Urinary Catheter] [ Care 05/06/18 19:35 Ordered OM.PC] Stat ADA Diabetic [[place] [employer] Diet] [DIET Diet 05/07/18 Breakfast Active ] Abdomen 1V Upright [CR] Stat Exams 05/06/18 17:45 Taken Abdomen Pelvis w Cont [CT] Stat Exams 05/06/18 20:59 Taken Chest 2V [CR] Stat Exams 05/06/18 17:35 Taken CULTURE BLOOD [BC] Stat Lab 05/06/18 19:15 Results CULTURE BLOOD [BC] Stat Lab 05/06/18 19:20 Results CULTURE URINE [RM] Stat Lab 05/06/18 19:35 Results Acetaminophen [Tylenol] Med 05/07/18 03:19 Active 650 mg PO Q4H PRN Enoxaparin [Lovenox] Med 05/07/18 09:00 Active 40 mg SUBCUT Q24H Insulin Lispro [HumaLOG] Med 05/07/18 07:00 Active See Protocol SUBCUT QIDACANDBED Ondansetron [Zofran] Med 05/07/18 03:19 Active 4 mg IVPUSH Q8H PRN Piperacillin/Tazobactam [Piperacil-Tazobact] 4.5 gm Med 05/07/18 13:00 Active Sodium Chloride 0.9% [Normal Saline] 100 ml IV Q8H Sodium Chloride 0.9% [Normal Saline] 1,000 ml Med 05/07/18 09:00 Active IV ASDIRECTED Blood Culture x2 Reflex Set [OM.PC] Stat Oth 05/06/18 18:49 Ordered Code Status [Resuscitation Status] Stat Resus Stat 05/07/18 01:55 Ordered Medication Orders Acetaminophen (Tylenol) 650 mg PO Q4H PRN PRN Reason: Pain/Fever Enoxaparin Sodium (Lovenox) 40 mg SUBCUT Q24H [place] Last Admin: 05/07/18 09:05 Dose: 40 mg Sodium Chloride (Normal Saline) 1,000 mls @ 75 mls/hr IV ASDIRECTED [place] Piperacillin Sod/Tazobactam (Sod 4.5 gm/ Sodium Chloride) 100 mls @ 25 mls/hr IV Q8H [facility] Insulin Human Lispro (Humalog) 0 unit SUBCUT QIDACANDBED [facility]; Protocol Last Admin: 05/07/18 09:12 Dose: 4 units Ondansetron HCl (Zofran) 4 mg IVPUSH Q8H PRN PRN Reason: Nausea Assessment/Plan Comment:: Impression: Renal calculus, nonobstructive, 9 mm Febrile with leukocytosis, 4% bands Nausea/vomiting with dehydration Chronic HTN HLD DM type 2 PVD Venous insufficiency A fib Depression Plan: IVF Continue Zosyn Resp infectious work up Droplet, contact isolation Daily Labs Home meds Correct electrolytes DVT/GI prophylaxis Urology consult as OP. DC 24-48 hours.
--- NOTE | 2018-05-07 15:10 | CT ---
CT abdomen and pelvis Technique: Multiple axial sections were obtained from above the dome of the diaphragm inferiorly through the pubic symphysis. Intravenous and oral contrast was utilized. Delayed images were obtained through the bladder. Comparison: No prior abdominal imaging is available. Findings: Mild increased density within both lung bases most likely representing scarring and atelectasis. Small hiatal hernia is seen with gastroesophageal reflux of contrast. Liver shows no focal parenchymal abnormality. Calcification within the wall of the gallbladder or possibly within the gallbladder representing small calcified gallstone. Spleen appears within normal limits. Adrenal glands show no nodule. Cystic lesion is seen next to the CBD and pancreatic head. This finding measures about 4.4 cm in size and could represent choledochocyst or a GI duplication cyst. Pancreas appears within normal limits. Kidneys show symmetric contrast enhancement. Small fatty lesion is noted within the mid right kidney measuring about 1.8 cm compatible with angiomyolipoma. Cyst is noted within the lower right kidney measuring 6.5 cm in size. Several calcifications are seen within the lower left kidney compatible with nonobstructing calculi. Aorta shows mild atherosclerotic change without aneurysm. No retroperitoneal adenopathy or mesenteric abnormalities are seen. No pelvic mass or adenopathy is seen. Appendix is felt to be visualized and appears within normal limits. No pelvic mass or adenopathy is seen. No inflammatory change or free fluid is seen. Delayed images shows contrast within the distal ureters and bladder. Bone window settings were reviewed which show scattered degenerative change throughout the spine. Impression: 1. Slight gallbladder wall calcification versus small calcified gallstone. 2. Cystic structure next to the CBD and pancreas with differential including choledochocyst as well as GI duplication cyst. 3. Incidental findings within both kidneys. Other incidental findings. 4. Nothing acute is appreciated. Diagnostic code #2 I agree with preliminary report from [facility], finalized on 05/07/18, 12:18 AM Central Time
[2018-05-07] MEDS: Aspirin 81 MG Tab.EC PO SCH (16:45)
[2018-05-07] MEDS ORDERED: Metoprolol Tartrate 5 MG/5 ML SDV IVPUSH PRN (17:08)
[2018-05-07] MEDS ORDERED: Metoprolol Tartrate 25 MG Tab PO SCH (17:15)
[2018-05-07] MEDS: Tamsulosin 0.4 MG Cap.ER PO SCH (17:45)
[2018-05-07] MEDS ORDERED: Tamsulosin 0.4 MG Cap.ER PO SCH (21:00)
[2018-05-07] MEDS ORDERED: Finasteride 5 MG Tab PO SCH (21:00)
[2018-05-07] MEDS ORDERED: Simvastatin 20 MG Tab PO SCH (21:00)
[2018-05-07] MEDS ORDERED: Gabapentin 300 MG Cap PO SCH (21:00)
[2018-05-07] MEDS: glipiZIDE 2.5 MG Tab.ER PO SCH (22:17)
[2018-05-07] MEDS: Apixaban 5 MG Tab PO SCH (22:18)
[2018-05-07] MEDS: Carvedilol 12.5 MG Tab PO SCH (22:18)
[2018-05-08] MEDS: Piperacillin/Tazobactam 4.5 GM in Sodium Chloride 0.9% 100 ML IV SCH (04:49)
[2018-05-08 08:33] VITALS: BP 117/70
[2018-05-08] MEDS: Insulin Lispro 100 UNIT/ML 10 ML VIAL SUBCUT SCH ×2 (08:37→11:19)
[2018-05-08] MEDS: Enoxaparin 40 MG/0.4 ML Syringe SUBCUT SCH (08:39)
[2018-05-08] MEDS: Carvedilol 12.5 MG Tab PO SCH (08:43)
[2018-05-08] MEDS: Aspirin 81 MG Tab.EC PO SCH (08:43)
[2018-05-08] MEDS: glipiZIDE 2.5 MG Tab.ER PO SCH (08:44)
[2018-05-08] MEDS: Tamsulosin 0.4 MG Cap.ER PO SCH (08:44)
[2018-05-08] MEDS: Apixaban 5 MG Tab PO SCH (08:44)
[2018-05-08] MEDS ORDERED: Ferrous Sulfate 325 MG Tab PO SCH (09:00)
[2018-05-08] MEDS ORDERED: DULoxetine 30 MG Cap PO SCH (09:00)
[2018-05-08] MEDS ORDERED: Spironolactone 25 MG Tab PO SCH (09:00)
[2018-05-08] MEDS ORDERED: Fenofibrate Nanocrystallized 145 MG Tab PO SCH (09:00)
[2018-05-08] MEDS ORDERED: Saccharomyces Boulardii (Probiotic) 250 MG Cap PO SCH (09:00)
--- NOTE | 2018-05-08 11:16 | PCM.DCSUM1 ---
Discharge Summary - Hospital Course Free Text/Narrative:: 72 year old male febrile on presentation was found to have a nonobstructing renal stone measuring 9 mm. He was treated with IV antibiotics, BCs were negative. After IV hydration his renal function improved. He has discharged on Keflex 500 mg TID; Flomax 0.4 mg BID PC. Remaining home meds were continued. He was given samples of Crystal Light Lemonade to help reduce the formatio of kidney stones. The patient refused a lab draw on discharge, a CBC has been ordered as an outpatient on 05/13/18. The patient should follow up with urology, Dr Cortes 2-4 weeks. He has been discharged, and will return to [facility]. Primary Dx Febrile illness Nephrolithiasis, 9 mm, nonobstructing Dehydration BPH ARF HPI Initial Comments: 72 year old male presented with nausea and reportedly a temporal fever of 102.0 F. This was documented in the ED, he requested a meal during his ED evaluation , and was able to tolerate it despite complaining of nausea/vomiting prior to admission. An infectious work up was initiated, and a CT of the abdomen/pelvis documented a renal stone, nonobstructive measuring 9 mm. The UA obtained was not suggestive of a UTI, or hematuria. He has not had difficulty passing urine. Lab results document an elevated WBCs, 19.6 with bands, 4%. The patient will be admitted as observation, code status is DNR. Diagnosis: Stroke: No - Discharge Data Discharge Date: 05/08/18 Discharge Disposition: DC/Tfer to [facility] 03 Condition: Good - Discharge Diagnosis/Problem(s) (1) Atrial fibrillation SNOMED Code(s): 76134508 ICD Code: I48.91 - UNSPECIFIED ATRIAL FIBRILLATION Status: Chronic Current Visit: Yes (2) Nephrolithiasis SNOMED Code(s): 78680736 ICD Code: N20.0 - CALCULUS OF KIDNEY Status: Acute Current Visit: Yes (3) Nausea & vomiting SNOMED Code(s): 93544225 ICD Code: R11.2 - NAUSEA WITH VOMITING, UNSPECIFIED Status: Acute Current Visit: Yes (4) Hypertension SNOMED Code(s): 24829663 ICD Code: I10 - ESSENTIAL (PRIMARY) HYPERTENSION Status: Chronic Current Visit: Yes (5) Hyperlipidemia SNOMED Code(s): 35568021 ICD Code: E78.5 - HYPERLIPIDEMIA, UNSPECIFIED Status: Chronic Current Visit: Yes (6) PVD (peripheral vascular disease) SNOMED Code(s): 408009039 ICD Code: I73.9 - PERIPHERAL VASCULAR DISEASE, UNSPECIFIED Status: Chronic Current Visit: Yes (7) MRSA carrier SNOMED Code(s): 513017921 ICD Code: Z22.322 - CARRIER OR SUSPECTED CARRIER OF METHICILLIN RESIS STAPH Status: Chronic Current Visit: Yes (8) BPH (benign prostatic hyperplasia) SNOMED Code(s): 374060044 ICD Code: N40.0 - BENIGN PROSTATIC HYPERPLASIA WITHOUT LOWER URINRY TRACT SYMP Status: Chronic Current Visit: Yes (9) Type 2 diabetes mellitus SNOMED Code(s): 12841446 ICD Code: E11.9 - TYPE 2 DIABETES MELLITUS WITHOUT COMPLICATIONS Status: Chronic Priority: High Current Visit: No Qualifiers: Diabetes mellitus intermediate insulin use: with long term care administrator use Diabetes mellitus complication status: with kidney complications Diabetes mellitus complication detail: with chronic kidney disease Chronic kidney disease stage : stage 3 (moderate) Qualified Code(s): E11.22 - Type 2 diabetes mellitus with diabetic chronic kidney disease; N18.3 - Chronic kidney disease, stage 3 ( moderate); Z79.4 - intermediate teacher (current) use of insulin (10) Chronic venous insufficiency SNOMED Code(s): 87055076, 34427120 ICD Code: I87.2 - VENOUS INSUFFICIENCY (CHRONIC) (PERIPHERAL) Status: Chronic Priority: Medium Current Visit: No - Patient Instructions Diet: Usual Diet as Tolerated Activity: As Tolerated Driving: Do Not Drive Showering/Bathing: May Shower Notify Provider of: Fever, Increased Pain, Nausea and/or Vomiting - Discharge Plan *PRESCRIPTION DRUG MONITORING PROGRAM REVIEWED*: Not Applicable *COPY OF PRESCRIPTION DRUG MONITORING REPORT IN PATIENT OLIVIA: Not Applicable Prescriptions/Med Rec: cephALEXin [Keflex] 500 mg PO Q8H #15 cap Tamsulosin [Flomax] 0.4 mg PO BIDPC #60 cap.er Home Medications: Home Meds Acetaminophen [Tylenol] 650 mg PO BEDTIME 01/19/15 [History] Acetaminophen [Tylenol] 650 mg PO BID 01/19/15 [History] Apixaban [Eliquis] 5 mg PO BID 01/19/15 [History] Carvedilol 12.5 mg PO BID 01/19/15 [History] Cholecalciferol (Vitamin D3) [Vitamin D3] 5,000 unit PO DAILY 01/19/15 [History] DULoxetine [Cymbalta] 90 mg PO DAILY 01/19/15 [History] Fenofibrate Nanocrystallized [Tricor] 145 mg PO DAILY 01/19/15 [History] Ferrous Gluconate 324 mg PO DAILY 01/19/15 [History] Finasteride [Proscar] 5 mg PO BEDTIME 01/19/15 [History] Furosemide 40 mg PO BID 01/19/15 [History] L Acidophil/B Lactis/B Longum [Florajen3] 460 mg PO DAILY 01/19/15 [History] Multivitamin [Daily Multiple Vitamin] 1 tab PO DAILY 01/19/15 [History] Potassium Chloride [Klor-Con] 20 meq PO DAILY 01/19/15 [History] Simvastatin [Zocor] 20 mg PO BEDTIME 01/19/15 [History] Spironolactone 50 mg PO DAILY 01/19/15 [History] Digoxin [Lanoxin] 125 mcg PO DAILY 01/17/18 [History] Lisinopril 5 mg PO DAILY 01/17/18 [History] Bisacodyl [Dulcolax] 5 mg PO DAILY PRN #30 tablet 01/21/18 [Rx] Docusate Sodium [Colace] 100 mg PO BID PRN #30 01/21/18 [Rx] Gabapentin [Neurontin] 300 mg PO BEDTIME #30 capsule 01/21/18 [Rx] glipiZIDE [Glucotrol XL] 2.5 mg PO BID #60 tab.er 01/21/18 [Rx] Aspirin [Adult Aspirin] 81 mg PO DAILY 05/07/18 [History] Tamsulosin [Flomax] 0.4 mg PO BIDPC #60 cap.er 05/08/18 [Rx] cephALEXin [Keflex] 500 mg PO Q8H #15 cap 05/08/18 [Rx] Other Amb Orders: CBC WITH AUTO DIFF [HEME] Time Frame: 05/13/18, Facility: [facility], Location: [facility] - [facility] Oxygen Therapy Mode: Room Air Patient Handouts: Benign Prostatic Hyperplasia, Kidney Stones, [id number] Referrals: Preston Crocker MD [Physician] - (Recommend urology consult as outpatient. ) Brian Omalley MD [Physician] - (Please follow-up with primary care doctor within 2 weeks of discharge. ) - Discharge Summary/Plan Comment DC Time >30 min.: No Discharge Summary/Plan Comment: Impression: Renal calculus, nonobstructive, 9 mm Febrile with leukocytosis, 4% bands Nausea/vomiting with dehydration Chronic HTN HLD DM type 2 PVD Venous insufficiency A fib Depression Plan: IVF Continue Zosyn Resp infectious work up Droplet, contact isolation Daily Labs Home meds Correct electrolytes DVT/GI prophylaxis Urology consult as OP. - General Info Date of Service: 05/06/18 Functional Status: Reports: Pain Controlled, Tolerating Diet, Ambulating, Urinating - Review of Systems General: Reports: No Symptoms HEENT: Reports: No Symptoms Pulmonary: Reports: No Symptoms Cardiovascular: Reports: No Symptoms Gastrointestinal: Reports: No Symptoms Genitourinary: Reports: No Symptoms Musculoskeletal: Reports: No Symptoms Skin: Reports: No Symptoms Neurological: Reports: No Symptoms Psychiatric: Reports: No Symptoms - Patient Data Vitals - Most Recent: Last Vital Signs Temp 36.0 C 05/08/18 08:00 Pulse 87 05/08/18 08:43 Resp 14 05/08/18 08:00 BP 117/70 05/08/18 08:43 Pulse Ox 98 05/08/18 08:00 Weight - Most Recent: 141.43 kg I&O - Last 24 hours: Intake & Output 05/07/18 05/08/18 05/08/18 22:59 06:59 14:59 Intake Total 3682 700 180 Output Total 1200 Balance 3682 -500 180 Lab Results - Last 24 hrs: Laboratory Results - last 24 hr 05/07/18 05/07/18 05/07/18 Range/Units 11:46 17:08 20:47 Sodium (136-145) mEq/L Potassium (3.5-5.1) mEq/L Chloride (98-107) mEq/L Carbon Dioxide (21-32) mEq/L Anion Gap (5-15) BUN (7-18) mg/dL Creatinine (0.7-1.3) mg/dL Est Cr Clr Drug Dosing mL/min Estimated GFR (MDRD) (>60) mL/min BUN/Creatinine Ratio (14-18) Glucose 321 H (83-115) mg/dL POC Glucose 259 H 315 H (83-110) mg/dL Lactic Acid (0.4-2.0) mmol/L Calcium (8.5-10.1) mg/dL Magnesium (1.8-2.4) mg/dl C-Reactive Protein (<1.0) mg/dL 05/08/18 05/08/18 05/08/18 Range/Units 06:50 10:15 10:15 Sodium 136 (136-145) mEq/L Potassium 4.4 (3.5-5.1) mEq/L Chloride 103 (98-107) mEq/L Carbon Dioxide 26 (21-32) mEq/L Anion Gap 11.4 (5-15) BUN 25 H (7-18) mg/dL Creatinine 1.2 (0.7-1.3) mg/dL Est Cr Clr Drug Dosing 74.83 mL/min Estimated GFR (MDRD) 60 (>60) mL/min BUN/Creatinine Ratio 20.8 H (14-18) Glucose 253 H (83-115) mg/dL POC Glucose 218 H (83-110) mg/dL Lactic Acid 1.9 (0.4-2.0) mmol/L Calcium 9.0 (8.5-10.1) mg/dL Magnesium 2.2 (1.8-2.4) mg/dl C-Reactive Protein 16.4 H* (<1.0) mg/dL 05/08/18 Range/Units 10:45 Sodium (136-145) mEq/L Potassium (3.5-5.1) mEq/L Chloride (98-107) mEq/L Carbon Dioxide (21-32) mEq/L Anion Gap (5-15) BUN (7-18) mg/dL Creatinine (0.7-1.3) mg/dL Est Cr Clr Drug Dosing mL/min Estimated GFR (MDRD) (>60) mL/min BUN/Creatinine Ratio (14-18) Glucose (83-115) mg/dL POC Glucose 231 H (83-110) mg/dL Lactic Acid (0.4-2.0) mmol/L Calcium (8.5-10.1) mg/dL Magnesium (1.8-2.4) mg/dl C-Reactive Protein (<1.0) mg/dL DICK Results - Last 24 hrs: Microbiology 05/06/18 19:20 Aerobic Blood Culture - Preliminary Blood - Venous - Lab Draw NO GROWTH AFTER 1 DAY Anaerobic Blood Culture - Final 05/06/18 19:15 Aerobic Blood Culture - Preliminary Blood - Venous NO GROWTH AFTER 1 DAY Anaerobic Blood Culture - Final 05/06/18 19:35 Urine Culture - Preliminary Urine, Catheterized NO GROWTH AFTER 1 DAY Med Orders - Current: Current Medications Acetaminophen (Tylenol) 650 mg PO Q4H PRN PRN Reason: Pain/Fever Apixaban (Eliquis) 5 mg PO BID [facility] Last Admin: 05/08/18 08:44 Dose: 5 mg Aspirin (Halfprin) 81 mg PO DAILY [facility] Last Admin: 05/08/18 08:43 Dose: 81 mg Carvedilol (Coreg) 12.5 mg PO BID [facility] Last Admin: 05/08/18 08:43 Dose: 12.5 mg Digoxin (Lanoxin) 125 mcg PO DAILY@1200 [place] Duloxetine HCl (Cymbalta) 90 mg PO DAILY [facility] Last Admin: 05/08/18 08:42 Dose: 90 mg Fenofibrate (Tricor) 145 mg PO DAILY [facility] Last Admin: 05/08/18 08:43 Dose: 145 mg Ferrous Sulfate (Ferrous Sulfate) 325 mg PO DAILY [facility] Last Admin: 05/08/18 08:42 Dose: 325 mg Finasteride (Proscar) 5 mg PO BEDTIME [facility] Last Admin: 05/07/18 22:20 Dose: 5 mg Gabapentin (Neurontin) 300 mg PO BEDTIME [facility] Last Admin: 05/07/18 22:17 Dose: 300 mg Glipizide (Glucotrol Xl) 2.5 mg PO BID [facility] Last Admin: 05/08/18 08:44 Dose: 2.5 mg Piperacillin Sod/Tazobactam (Sod 4.5 gm/ Sodium Chloride) 100 mls @ 25 mls/hr IV Q8H [facility] Last Admin: 05/08/18 04:49 Dose: 25 mls/hr Insulin Human Lispro (Humalog) 0 unit SUBCUT QIDACANDBED [facility]; Protocol Last Admin: 05/08/18 08:37 Dose: 6 units Metoprolol Tartrate (Lopressor) 5 mg IVPUSH Q6H PRN PRN Reason: HR>110 Ondansetron HCl (Zofran) 4 mg IVPUSH Q8H PRN PRN Reason: Nausea Saccharomyces Boulardii (Florastor) 500 mg PO DAILY [facility] Last Admin: 05/08/18 08:44 Dose: 500 mg Simvastatin (Zocor) 20 mg PO BEDTIME [facility] Last Admin: 05/07/18 22:17 Dose: 20 mg Spironolactone (Aldactone) 50 mg PO DAILY [facility] Last Admin: 05/08/18 08:42 Dose: 50 mg Tamsulosin HCl (Flomax) 0.4 mg PO BIDPC [facility] Last Admin: 05/08/18 08:44 Dose: 0.4 mg Discontinued Medications Acetaminophen (Tylenol) 650 mg PO NOW ONE Stop: 05/06/18 18:11 Last Admin: 05/06/18 18:23 Dose: 650 mg Enoxaparin Sodium (Lovenox) 40 mg SUBCUT Q24H [facility] Last Admin: 05/08/18 08:39 Dose: 40 mg Piperacillin Sod/Tazobactam (Sod 4.5 gm/ Sodium Chloride) 100 mls @ 200 mls/hr IV Q6H ONE Stop: 05/06/18 20:53 Last Admin: 05/06/18 21:11 Dose: 200 mls/hr Sodium Chloride (Normal Saline) 1,000 mls @ 200 mls/hr IV ASDIRECTED [facility] Last Admin: 05/06/18 21:11 Dose: 200 mls/hr Sodium Chloride (Normal Saline) Confirm Administered Dose 100 mls @ as directed .ROUTE .STK-MED ONE Stop: 05/06/18 21:05 Last Admin: 05/07/18 00:20 Dose: Not Given Piperacillin Sod/Tazobactam (Sod 4.5 gm/ Sodium Chloride) 100 mls @ 200 mls/hr IV Q6H [facility] Last Admin: 05/07/18 09:17 Dose: Not Given Sodium Chloride (Normal Saline) 1,000 mls @ 200 mls/hr IV ASDIRECTED [facility] Sodium Chloride (Normal Saline) 1,000 mls @ 999 mls/hr IV ONETIME ONE Stop: 05/07/18 04:05 Last Admin: 05/07/18 03:34 Dose: 999 mls/hr Sodium Chloride (Normal Saline) 1,000 mls @ 150 mls/hr IV ASDIRECTED [facility] Stop: 05/07/18 09:00 Last Admin: 05/07/18 04:49 Dose: 150 mls/hr Sodium Chloride (Normal Saline) 1,000 mls @ 75 mls/hr IV ASDIRECTED [place] Stop: 05/07/18 16:00 Last Admin: 05/07/18 12:39 Dose: 75 mls/hr Sodium Chloride (Normal Saline) Confirm Administered Dose 100 mls @ as directed .ROUTE .STK-MED ONE Stop: 05/07/18 03:32 Last Admin: 05/07/18 05:44 Dose: Not Given Iopamidol (Isovue-300 (61%)) 100 ml IVPUSH ONETIME ONE Stop: 05/06/18 22:29 Last Admin: 05/06/18 22:44 Dose: 100 ml Metoclopramide HCl (Reglan) 10 mg IVPUSH ONETIME ONE Stop: 05/06/18 19:05 Last Admin: 05/06/18 19:10 Dose: 10 mg Ondansetron HCl (Zofran) 4 mg IVPUSH ONETIME ONE Stop: 05/06/18 17:25 Last Admin: 05/06/18 17:45 Dose: 4 mg Piperacillin Sod/Tazobactam Sod (Piperacil-Tazobact) Confirm Administered Dose 4.5 gm .ROUTE .STK-MED ONE Stop: 05/06/18 21:03 Last Admin: 05/07/18 00:20 Dose: Not Given Piperacillin Sod/Tazobactam Sod (Piperacil-Tazobact) Confirm Administered Dose 4.5 gm .ROUTE .STK-MED ONE Stop: 05/07/18 08:59 Last Admin: 05/07/18 09:13 Dose: 4.5 gm Tamsulosin HCl (Flomax) 0.4 mg PO BEDTIME [place] - Exam Quality Assessment: Reports: DVT Prophylaxis General: Reports: Alert, Oriented, Cooperative, No Acute Distress HEENT: Reports: Pupils Equal, Pupils Reactive, EOMI Neck: Reports: Trachea Midline, No JVD Lungs: Reports: Normal Respiratory Effort Cardiovascular: Reports: Regular Rate, Irregular Rhythm GI/Abdominal Exam: Normal Bowel Sounds, Soft, Non-Tender, No Organomegaly, No Distention, No Abnormal Bruit (Male) Exam: Deferred Rectal (Males) Exam: Deferred Back Exam: Reports: Normal Inspection Extremities: Normal Inspection, Non-Tender, Normal Capillary Refill Skin: Reports: Warm Neurological: Reports: No New Focal Deficit, Normal Gait, Normal Speech Psy/Mental Status: Reports: Alert, Normal Affect, Normal Mood
[2018-05-08] MEDS ORDERED: Cephalexin 500 MG Cap PO SCH (11:30)
[2018-05-08] MEDS ORDERED: Digoxin 125 MCG Tab PO SCH (12:00)
--- NOTE | 2018-05-09 11:37 | CR ---
Abdomen: Supine view of the abdomen was obtained. Comparison: No prior abdominal imaging, subsequent CT abdomen and pelvis exam performed later on the same day is available. Scattered gas within small bowel and colon is seen which appears within normal limits. Calcifications are seen within the pelvis compatible with phleboliths. Calcifications are seen within the left abdomen compatible with renal calculi. Slight scoliosis and degenerative change are noted within the spine. Old or subacute right sided pubic rami fracture is seen. Impression: 1. Findings as noted above. Nothing acute is definitely appreciated. Diagnostic code #2
--- NOTE | 2018-05-09 11:43 | CR ---
Chest: Two views of the chest were obtained. Comparison: Previous chest x-ray of 01/17/18. Heart size appears within normal limits. Tortuous thoracic aorta is seen. Small portion of the left upper chest is obscured from the patient's chin. Lungs otherwise are clear. Bony structures are osteoporotic. Compression deformity is noted within the thoracic spine which is stable. Impression: 1. Incidental findings. Nothing acute is appreciated. Diagnostic code #2
== END 2018-05-08 12:20 ==
LOC: JD.ED 17:12 → JD.MS 23:56
PROVIDERS: ADMIT Internal Medicine Cardiovascular Disease; ATTEND Internal Medicine Cardiovascular Disease
DX: N20.0 Calculus of kidney (principal); D72.829 Elevated white blood cell count, unspecified; E86.0 Dehydration; I48.2 Chronic atrial fibrillation; I87.2 Venous insufficiency (chronic) (peripheral); N40.0 Benign prostatic hyperplasia without lower urinary tract symptoms; N17.9 Acute kidney failure, unspecified; I12.9 Hypertensive chronic kidney disease with stage 1 through stage 4 chronic kidney disease, or unspecified chronic kidney disease; E11.22 Type 2 diabetes mellitus with diabetic chronic kidney disease; N18.3 Chronic kidney disease, stage 3 (moderate); I73.9 Peripheral vascular disease, unspecified; F32.9 Major depressive disorder, single episode, unspecified; E66.9 Obesity, unspecified; Z68.35 Body mass index [BMI] 35.0-35.9, adult; Z22.322 Carrier or suspected carrier of Methicillin resistant Staphylococcus aureus; Z66 Do not resuscitate; Z79.4 Long term (current) use of insulin; Z79.01 Long term (current) use of anticoagulants; Z79.82 Long term (current) use of aspirin; Z79.899 Other long term (current) drug therapy
CPT/HCPCS: 36415; 71046; 74018; 74177; 80048; 80053; 81001; 82947; 82962; 83605; 83735; 85007; 85025; 85027; 85379; 86140; 86738; 87040; 87086; 87641; 87804; 93005; 96361; 96365; 96375; 99285; A9270; J1650; J2405; J2543; J2765; J7030; J7040; Q9967; 93010; 96366; 96372; G0378

== ENCOUNTER 2020-04-29 00:32 | Emergency (ER) | payer MEDICARE, MEDICAID ==
[2020-04-29 00:35] VITALS: BP 111/71
[2020-04-29 00:38] VITALS: PULSE 96
--- NOTE | 2020-04-29 00:47 | EDM.PDOC ---
ED HPI GENERAL MEDICAL PROBLEM - General Chief Complaint: Genitourinary Problem Stated Complaint: [facility] Time Seen by Provider: 04/29/20 00:42 Source of Information: Reports: Patient History Limitations: Reports: No Limitations - History of Present Illness INITIAL COMMENTS - FREE TEXT/NARRATIVE: Mr. Peñaloza is a very pleasant 74-year-old gentleman who is now brought to the ED by EMS from [facility] for replacement of his chronic indwelling Tovar catheter. According to the patient, he has had a chronic indwelling Tovar for about 1.5 years, due to obstructive uropathy. He states that his catheter was removed tonight, as it was due to be changed, but then his nurses were unable to place a new one. Here in the ED, the patient is found to be hemodynamically stable, afebrile, saturating 99% on 3 L of oxygen per nasal cannula. Other than this morning's Tovar catheter issue, the patient denies having a recent fever, chills, sore throat, ear pain, nasal or sinus congestion, cough, dyspnea, chest pain, palpitations, nausea, vomiting, constipation, diarrhea, abdominal pain, urinary symptoms, recent weight gain or weight loss, recent bloody bowel movements or black bowel movements, recent joint aches, headaches, or rashes. The patient's PCP is Dr. Brian Omalley. - Related Data Allergies Allergy/AdvReac Type Severity Reaction Status Date / Time No Known Allergies Allergy Verified 04/29/20 00:37 Home Meds: Home Meds Acetaminophen [Tylenol] 650 mg PO BEDTIME 01/19/15 [History] Acetaminophen [Tylenol] 650 mg PO BID PRN 01/19/15 [History] Apixaban [Eliquis] 5 mg PO BID 01/19/15 [History] Cholecalciferol (Vitamin D3) [Vitamin D3] 5,000 unit PO DAILY 01/19/15 [History] DULoxetine [Cymbalta] 90 mg PO DAILY 01/19/15 [History] Fenofibrate Nanocrystallized [Tricor] 145 mg PO DAILY 01/19/15 [History] Finasteride [Proscar] 5 mg PO BEDTIME 01/19/15 [History] Furosemide 60 mg PO BID 01/19/15 [History] Multivitamin [Daily Multiple Vitamin] 1 tab PO DAILY 01/19/15 [History] Potassium Chloride [Klor-Con] 20 meq PO BID 01/19/15 [History] Simvastatin [Zocor] 20 mg PO BEDTIME 01/19/15 [History] Spironolactone 50 mg PO BID 01/19/15 [History] carvediloL [Carvedilol] 12.5 mg PO BID 01/19/15 [History] Digoxin [Lanoxin] 125 mcg PO DAILY 01/17/18 [History] Lisinopril 5 mg PO DAILY 01/17/18 [History] Docusate Sodium [Colace] 100 mg PO BID PRN #30 01/21/18 [Rx] Aspirin [Adult Aspirin] 81 mg PO DAILY 05/07/18 [History] Benzocaine/Menthol [Cepacol Sore Throat Lozenge] 1 each MM TID PRN 04/29/20 [History] Calcium Carbonate 400 mg PO BID PRN 04/29/20 [History] Cranberry Fruit Extract [Cranberry] 425 mg PO BID 04/29/20 [History] Docusate Sodium/Sennosides [Senna Plus] 1 each PO BID 04/29/20 [History] Dulaglutide [Trulicity] 1.5 mg SQ WEEKLY 04/29/20 [History] Ibuprofen 200 mg PO TID 04/29/20 [History] Insulin Glarg,Human.Rec.Analog [Lantus] 58 unit SQ BID 04/29/20 [History] Insulin Lispro [HumaLOG] 20 unit SQ TID 04/29/20 [History] Loperamide HCl [Imodium A-D] 2 mg PO ASDIRECTED PRN 04/29/20 [History] Propylene Glycol/PEG 400/Pf [Systane 0.3-0.4% Eye Drops] 1 each OP TID PRN 04/29/20 [History] buPROPion [Wellbutrin SR] 150 mg PO DAILY 04/29/20 [History] metOLazone [Metolazone] 2.5 mg PO Q48H 04/29/20 [History] Past Medical History Cardiovascular History: Reports: Heart Failure, High Cholesterol, Hypertension, PVD Genitourinary History: Reports: BPH, Retention, Urinary (chronic indwelling catheter) Musculoskeletal History: Reports: Fracture (2 hips) Psychiatric History: Reports: Depression Endocrine/Metabolic History: Reports: Diabetes, Type II, Obesity/BMI 30+ - Infectious Disease History Infectious Disease History: Reports: Chicken Pox, Measles, MRSA, Mumps, Rubella, Scarlet Fever Social & Family History - Family History Family Medical History: No Pertinent Family History - Tobacco Use Tobacco Use Status *Q: Former Tobacco User Years of Tobacco use: 29 Packs/Tins Daily: 1 Month/Year Tobacco Last Used: Quit 2016 - Caffeine Use Caffeine Use: Reports: Coffee - Alcohol Use Alcohol Use History: No - Recreational Drug Use Recreational Drug Use: No - Living Situation & Occupation Living situation: Reports: Single, Extended Care Facility ([facility]) Occupation: Retired ED ROS GENERAL - Review of Systems Review Of Systems: Comprehensive ROS is negative, except as noted in HPI. ED EXAM, RENAL/ - Physical Exam Exam: See Below Exam Limited By: No Limitations General Appearance: Alert, WD/WN, No Apparent Distress (Male) Exam: Other (Somewhat edematous penis without a catheter) Course - Vital Signs Last Recorded V/S: Last Vital Signs Temp 35.7 C L 04/29/20 00:35 Pulse 96 04/29/20 00:35 Resp 16 04/29/20 00:35 BP 111/71 04/29/20 00:35 Pulse Ox 99 04/29/20 00:35 - Orders/Labs/Meds Orders: Active Orders 24 hr Category Date Time Status Bladder Scan [RC] ASDIRECTED Care 04/29/20 01:52 Ordered Insert Tovar Catheter [Insert Urinary Catheter] [OM.PC] Care 04/29/20 02:00 Ordered Q24H Urinary Catheter Assessment [RC] ASDIRECTED Care 04/29/20 01:53 Ordered - Re-Assessments/Exams Free Text/Narrative Re-Assessment/Exam: 04/29/20 00:42 As above, the patient has had a chronic indwelling Tovar for about 1.5 years, and had it removed tonight at the snf, as it was time to be changed, but the nurses were then unable to place a new one. We will see what we can do. 04/29/20 01:14 Notified by Keren CAMARGO that she and Cora CAMARGO were unable to place a catheter despite several attempts with several different sizes and types. A bladder scan revealed about 350 mL of urine. 04/29/20 01:[address] Stahl at 01:29. He is not able to address this issue. 04/29/20 01:40 Case discussed with Sherrill at [facility], at 01:34. She then spoke to the Urologist Dr. Pantera Keane, who requested the patient be transferred to their ED. Case then discussed with Dr. Fleming, ED Physician at [facility], at 01:39. He accepted the patient for transfer to their facility. The patient will be transported by ground ambulance. Departure - Departure Time of Disposition: 01:43 Disposition: DC/Tfer to Acute Hospital 02 Condition: Good Clinical Impression: Obstructive uropathy - Discharge Information *PRESCRIPTION DRUG MONITORING PROGRAM REVIEWED*: Not Applicable *COPY OF PRESCRIPTION DRUG MONITORING REPORT IN PATIENT OLIVIA: Not Applicable Referrals: Brian Omalley MD [Primary Care Provider] - Forms: ED Department Discharge Sepsis Event Note (ED) - Evaluation Sepsis Screening Result: No Definite Risk - Focused Exam Vital Signs: Vital Signs Temp Pulse Resp BP BP Pulse Ox 04/29/20 00:35 35.7 C L 96 16 111/71 99 04/29/20 00:34 35.7 C L 118 H 17 111/71 98 - My Orders Last 24 Hours: My Active Orders 04/29/20 01:52 Bladder Scan [RC] ASDIRECTED 04/29/20 01:53 Urinary Catheter Assessment [RC] ASDIRECTED 04/29/20 02:00 Insert Tovar Catheter [Insert Urinary Catheter] [OM.PC] Q24H - Assessment/Plan Last 24 Hours: My Active Orders 04/29/20 01:52 Bladder Scan [RC] ASDIRECTED 04/29/20 01:53 Urinary Catheter Assessment [RC] ASDIRECTED 04/29/20 02:00 Insert Tovar Catheter [Insert Urinary Catheter] [OM.PC] Q24H
== END 2020-04-29 02:10 ==
LOC: JD.ED 00:32
DX: N13.9 Obstructive and reflux uropathy, unspecified (principal); I11.0 Hypertensive heart disease with heart failure; I50.9 Heart failure, unspecified; E78.00 Pure hypercholesterolemia, unspecified; E11.9 Type 2 diabetes mellitus without complications; E66.9 Obesity, unspecified; Z68.36 Body mass index [BMI] 36.0-36.9, adult; Z87.891 Personal history of nicotine dependence; Z79.4 Long term (current) use of insulin; Z79.899 Other long term (current) drug therapy; Z79.82 Long term (current) use of aspirin; Z79.01 Long term (current) use of anticoagulants
CPT/HCPCS: 99283; 99284

== ENCOUNTER 2020-08-05 15:28 | Observation (INO) | payer MEDICARE, MEDICAID ==
[2020-08-05] MEDS ORDERED: Sodium Chloride 0.9% 10 ML Syringe FLUSH PRN (16:05)
--- NOTE | 2020-08-05 16:25 | EDM.PDOC ---
ED HPI GENERAL MEDICAL PROBLEM - General Chief Complaint: Genitourinary Problem Stated Complaint: [facility] Time Seen by Provider: 08/05/20 16:04 Source of Information: Reports: Patient, Usp Records, RN Notes Reviewed History Limitations: Reports: No Limitations - History of Present Illness INITIAL COMMENTS - FREE TEXT/NARRATIVE: Patient is a 74-year-old male who is brought into the ER by [facility] for the evaluation of his increased lethargy, and Ewi drainage. The patient states that he has had a chronic indwelling Wei for many years however he has not noticed the drainage up until just a few days ago. He is not having any abdominal pain, the Wei seems to be draining appropriately. He is denying any nausea/vomiting/fevers or chills. Patient does have a history of a very hard Wei catheter start. He notes that this 1 has not been changed for some time now. He is denying any cough, vitals are stable at time of triage pulse is 84 bpm, temperature is 96.2 F, respiratory rate of 16, blood pressure is 103/71, O2 sats are 98% on 2 L via nasal cannula. - Related Data Allergies Allergy/AdvReac Type Severity Reaction Status Date / Time No Known Allergies Allergy Verified 08/05/20 15:43 Home Meds: Home Meds Acetaminophen [Tylenol] 650 mg PO BEDTIME 01/19/15 [History] Acetaminophen [Tylenol] 650 mg PO BID PRN 01/19/15 [History] Apixaban [Eliquis] 5 mg PO BID 01/19/15 [History] Cholecalciferol (Vitamin D3) [Vitamin D3] 5,000 unit PO DAILY 01/19/15 [History] DULoxetine [Cymbalta] 90 mg PO DAILY 01/19/15 [History] Fenofibrate Nanocrystallized [Tricor] 145 mg PO DAILY 01/19/15 [History] Finasteride [Proscar] 5 mg PO BEDTIME 01/19/15 [History] Furosemide 60 mg PO BID 01/19/15 [History] Multivitamin [Daily Multiple Vitamin] 1 tab PO DAILY 01/19/15 [History] Potassium Chloride [Klor-Con] 20 meq PO BID 01/19/15 [History] Simvastatin [Zocor] 20 mg PO BEDTIME 01/19/15 [History] Spironolactone 50 mg PO BID 01/19/15 [History] carvediloL [Carvedilol] 12.5 mg PO BID 01/19/15 [History] Digoxin [Lanoxin] 125 mcg PO DAILY 01/17/18 [History] Lisinopril 5 mg PO DAILY 01/17/18 [History] Docusate Sodium [Colace] 100 mg PO BID PRN #30 01/21/18 [Rx] Aspirin [Adult Aspirin] 81 mg PO DAILY 05/07/18 [History] Benzocaine/Menthol [Cepacol Sore Throat Lozenge] 1 each MM TID PRN 04/29/20 [History] Cranberry Fruit Extract [Cranberry] 425 mg PO BID 04/29/20 [History] Docusate Sodium/Sennosides [Senna Plus] 1 each PO BID 04/29/20 [History] Dulaglutide [Trulicity] 1.5 mg SQ WEEKLY 04/29/20 [History] Ibuprofen 200 mg PO TID 04/29/20 [History] Insulin Lispro [HumaLOG] 20 unit SQ TID 04/29/20 [History] Loperamide HCl [Imodium A-D] 2 mg PO ASDIRECTED PRN 04/29/20 [History] Propylene Glycol/PEG 400/Pf [Systane 0.3-0.4% Eye Drops] 1 each OP TID PRN 04/29/20 [History] buPROPion [Wellbutrin SR] 150 mg PO DAILY 04/29/20 [History] metOLazone [Metolazone] 2.5 mg PO Q48H 04/29/20 [History] Bacitracin [Bacitracin Oint 1 GM] 1 applic TOP DAILY 08/05/20 [History] Bisacodyl [Gentle Laxative] 10 mg RECTAL DAILY PRN 08/05/20 [History] Calcium Carbonate [Tums] 400 mg PO BID PRN 08/05/20 [History] bisacodyL [Dulcolax] 5 mg PO DAILY PRN 08/05/20 [History] Past Medical History Cardiovascular History: Reports: Heart Failure, High Cholesterol, Hypertension, PVD Genitourinary History: Reports: BPH, Retention, Urinary Other Genitourinary History: Indwelling Catheter Musculoskeletal History: Reports: Fracture Psychiatric History: Reports: Depression Endocrine/Metabolic History: Reports: Diabetes, Type II, Obesity/BMI 30+ Dermatologic History: Reports: Other (See Below) Other Dermatologic History: MRSA infection R) foot - Infectious Disease History Infectious Disease History: Reports: Chicken Pox, Measles, MRSA, Mumps, Rubella, Scarlet Fever - Past Surgical History Head Surgeries/Procedures: Reports: None Cardiovascular Surgical History: Reports: None Male Surgical History: Reports: None Endocrine Surgical History: Reports: None Musculoskeletal Surgical History: Reports: None Other Musculoskeletal Surgeries/Procedures:: hip surgery after fx Social & Family History - Family History Family Medical History: No Pertinent Family History - Tobacco Use Tobacco Use Status *Q: Never Tobacco User Second Hand Smoke Exposure: No - Caffeine Use Caffeine Use: Reports: Coffee - Recreational Drug Use Recreational Drug Use: No - Living Situation & Occupation Living situation: Reports: Single, Extended Care Facility ([facility]) Occupation: Retired ED ROS GENERAL - Review of Systems Review Of Systems: Comprehensive ROS is negative, except as noted in HPI. ED EXAM, RENAL/ - Physical Exam Exam: See Below Exam Limited By: No Limitations General Appearance: Alert, WD/WN, No Apparent Distress Respiratory/Chest: No Respiratory Distress, Lungs Clear, Normal Breath Sounds, No Accessory Muscle Use, Chest Non-Tender Cardiovascular: Normal Peripheral Pulses, Regular Rate, Rhythm, No Edema GI/Abdominal: Normal Bowel Sounds, Soft, Non-Tender, No Distention, No Mass (Male) Exam: Urethral Discharge (purulent drainage from penile tip, indwelling wei catheter in place, seems to be nontender) Extremities: Normal Inspection, Normal Capillary Refill Neurological: Alert, Oriented, Normal Cognition, No Motor/Sensory Deficits Psychiatric: Normal Affect, Normal Mood Skin Exam: Warm, Dry, Intact, Normal Color, No Rash Course - Vital Signs Last Recorded V/S: Last Vital Signs Temp 96.2 F L 08/05/20 15:37 Pulse 84 08/05/20 15:37 Resp 16 08/05/20 15:37 BP 103/71 08/05/20 15:37 Pulse Ox 98 08/05/20 15:37 - Orders/Labs/Meds Orders: Active Orders 24 hr Category Date Time Status Patient Status [ADT] Routine ADT 08/05/20 21:10 Active Bladder Scan [RC] ASDIRECTED Care 08/05/20 19:24 Active Central Line Assessment [RC] DAILY Care 08/05/20 21:20 Active Communication Order [RC] ASDIRECTED Care 08/05/20 21:21 Active Notify Provider Consults [RC] ASDIRECTED Care 08/05/20 20:22 Ordered Oxygen Therapy [RC] PRN Care 08/05/20 21:10 Active Peripheral IV Care [RC] . DIRECTED Care 08/05/20 16:05 Active Up With Assistance [RC] ASDIRECTED Care 08/05/20 21:10 Active VTE/DVT Education [RC] PER UNIT ROUTINE Care 08/05/20 21:10 Active Vital Signs [RC] Q4H Care 08/05/20 21:10 Active Consult to Physician [CONS] Stat Cons 08/05/20 20:21 Ordered Regular Diet [DIET] Diet 08/05/20 Breakfast Active Chest 1V-Tube Placement Chk NC [CR] Stat Exams 08/05/20 21:32 Ordered BASIC METABOLIC PANEL,BMP [CHEM] Stat Lab 08/06/20 08:00 Ordered CBC WITH AUTO DIFF [HEME] Stat Lab 08/06/20 08:00 Ordered CULTURE BLOOD [BC] Stat Lab 08/05/20 20:27 Ordered CULTURE URINE [RM] Routine Lab 08/05/20 20:08 Ordered CULTURE WOUND [RM] Stat Lab 08/05/20 16:21 Received Acetaminophen [TylenoL] Med 08/05/20 21:10 Active 650 mg PO Q4H PRN Apixaban [Eliquis] Med 08/05/20 21:30 Ordered 5 mg PO BID Aspirin [Halfprin] Med 08/06/20 09:00 Active 81 mg PO DAILY Calcium Carbonate [Tums] Med 08/05/20 21:23 Ordered 400 mg PO BID PRN Cranberry Fruit Extract [Cranberry] Med 08/06/20 09:00 Ordered 425 mg PO BID DULoxetine Med 08/06/20 09:00 Ordered 90 mg PO DAILY Digoxin [Lanoxin] Med 08/06/20 12:00 Active 125 mcg PO DAILY@1200 Docusate Sodium [Colace] Med 08/05/20 21:23 Active 100 mg PO BID PRN Dulaglutide [Trulicity] Med 08/07/20 21:23 Ordered 1.5 mg SQ WE Fenofibrate Nanocrystallized [Tricor] Med 08/06/20 09:00 Active 145 mg PO DAILY Finasteride [Proscar] Med 08/06/20 21:00 Active 5 mg PO BEDTIME Insulin Lispro Med 08/06/20 09:00 Ordered 20 unit SQ TID Ondansetron [Zofran ODT] Med 08/05/20 21:10 Active 4 mg PO Q4H PRN Simvastatin [Zocor] Med 08/06/20 21:00 Ordered 20 mg PO BEDTIME Sodium Chloride 0.9% [Normal Saline] 1,000 ml Med 08/05/20 21:15 Ordered IV ASDIRECTED Sodium Chloride 0.9% [Saline Flush] Med 08/05/20 16:05 Active 10 ml FLUSH ASDIRECTED PRN bisacodyL [Dulcolax] Med 08/05/20 21:23 Active 5 mg PO DAILY PRN buPROPion [Wellbutrin SR] Med 08/06/20 09:00 Ordered 150 mg PO DAILY carvediloL [Coreg] Med 08/06/20 09:00 Active 12.5 mg PO BID cefTRIAXone [Rocephin] 1 gm Med 08/05/20 21:15 Ordered Sodium Chloride 0.9% [Normal Saline] 100 ml IV Q24H oxyCODONE Med 08/05/20 21:10 Active 5 mg PO Q4H PRN Peripheral IV Insertion Adult [OM.PC] Routine Oth 08/05/20 16:05 Ordered Resuscitation Status Routine Resus Stat 08/05/20 21:10 Ordered Medication Orders Acetaminophen (Acetaminophen 325 Mg Tab) 650 mg PO Q4H PRN PRN Reason: Pain (Mild 1-3)/fever Apixaban (Apixaban 5 Mg Tab) 5 mg PO BID [facility] Aspirin (Aspirin 81 Mg Tab.Ec) 81 mg PO DAILY [facility] Bisacodyl (Bisacodyl 5 Mg Tab) 5 mg PO DAILY PRN PRN Reason: Constipation Bupropion HCl (Bupropion 150 Mg Tab.Sr) 150 mg PO DAILY [facility] Calcium Carbonate/Glycine (Calcium Carbonate 500 Mg Tab.Chew) 400 mg PO BID PRN PRN Reason: Indigestion Carvedilol (Carvedilol 12.5 Mg Tab) 12.5 mg PO BID [facility] Digoxin (Digoxin 125 Mcg Tab) 125 mcg PO DAILY@1200 [facility] Docusate Sodium (Docusate Sodium 100 Mg Cap) 100 mg PO BID PRN PRN Reason: Constipation Fenofibrate (Fenofibrate Nanocrystallized 145 Mg Tab) 145 mg PO DAILY [place] Finasteride (Finasteride 5 Mg Tab) 5 mg PO BEDTIME [place] Sodium Chloride (Normal Saline) 1,000 mls @ 75 mls/hr IV ASDIRECTED [place] Stop: 08/06/20 10:34 Ceftriaxone Sodium 1 gm/ (Sodium Chloride) 100 mls @ 200 mls/hr IV Q24H [place] Non-Formulary Medication (Cranberry Fruit Extract [Cranberry]) 425 mg PO BID [place] Non-Formulary Medication (Dulaglutide [Trulicity]) 1.5 mg SQ WE [place] Non-Formulary Medication (Duloxetine) 90 mg PO DAILY [place] Non-Formulary Medication (Insulin Lispro) 20 unit SQ TID [place] Ondansetron HCl (Ondansetron 4 Mg Tab.Dis) 4 mg PO Q4H PRN PRN Reason: nausea, able to take PO Oxycodone HCl (Oxycodone 5 Mg Tab) 5 mg PO Q4H PRN PRN Reason: Pain (moderate 4-6) Simvastatin (Simvastatin 20 Mg Tab) 20 mg PO BEDTIME [place] Sodium Chloride (Sodium Chloride 0.9% 10 Ml Syringe) 10 ml FLUSH ASDIRECTED PRN PRN Reason: Keep Vein Open Last Admin: 08/05/20 18:50 Dose: 10 ml Documented by: DORIS Labs: Laboratory Tests 08/05/20 08/05/20 08/05/20 Range/Units 18:40 18:40 20:00 WBC 11.25 H (4.23-9.07) K/mm3 RBC 4.42 L (4.63-6.08) M/mm3 Hgb 13.0 L D (13.7-17.5) gm/dl Hct 41.0 (40.1-51.0) % MCV 92.8 H (79.0-92.2) fl MCH 29.4 (25.7-32.2) pg MCHC 31.7 L (32.2-35.5) g/dl RDW Std Deviation 44.4 H (35.1-43.9) fL Plt Count 233 D (163-337) K/mm3 MPV 11.9 (9.4-12.3) fl Neut % (Auto) 71.1 H (34.0-67.9) % Lymph % (Auto) 18.0 L (21.8-53.1) % [place] % (Auto) 8.2 (5.3-12.2) % Eos % (Auto) 2.1 (0.8-7.0) Baso % (Auto) 0.3 (0.1-1.2) % Neut # (Auto) 8.00 H (1.78-5.38) K/mm3 Lymph # (Auto) 2.03 (1.32-3.57) K/mm3 [place] # (Auto) 0.92 H (0.30-0.82) K/mm3 Eos # (Auto) 0.24 (0.04-0.54) K/mm3 Baso # (Auto) 0.03 (0.01-0.08) K/mm3 Manual Slide Review Sodium 138 (136-145) mEq/L Potassium 3.8 (3.5-5.1) mEq/L Chloride 96 L (98-107) mEq/L Carbon Dioxide 32 (21-32) mEq/L Anion Gap 13.8 (5-15) BUN 55 H D (7-18) mg/dL Creatinine 1.6 H (0.7-1.3) mg/dL Est Cr Clr Drug Dosing TNP Estimated GFR (MDRD) 43 (>60) mL/min BUN/Creatinine Ratio 34.4 H (14-18) Glucose 118 H (70-99) mg/dL Calcium 9.4 (8.5-10.1) mg/dL Total Bilirubin 0.7 (0.2-1.0) mg/dL AST 25 (15-37) U/L ALT 25 (16-63) U/L Alkaline Phosphatase 84 (46-116) U/L C-Reactive Protein 11.1 H* (<1.0) mg/dL Total Protein 7.9 (6.4-8.2) g/dl Albumin 3.1 L (3.4-5.0) g/dl Globulin 4.8 gm/dL Albumin/Globulin Ratio 0.7 L (1-2) Urine Color Yellow (Yellow) Urine Appearance Slt cloudy H (Clear) Urine pH 6.0 (5.0-8.0) Ur Specific [place] 1.025 (1.005-1.030) Urine Protein Negative (Negative) Urine Glucose (UA) Negative (Negative) Urine Ketones Negative (Negative) Urine Occult Blood 2+ H (Negative) Urine Nitrite Positive H (Negative) Urine Bilirubin Negative (Negative) Urine Urobilinogen 0.2 (0.2-1.0) Ur Leukocyte Esterase 3+ H (Negative) Urine RBC 5-10 H (0-5) /hpf Urine WBC 40-50 H (0-5) /hpf Ur Squamous Epith Cells 0-5 (0-5) /hpf Urine Bacteria Moderate H (FEW) /hpf Urine Mucus Few (FEW) /hpf Influenza Type A RNA (NEGATIVE) Influenza Type B RNA (NEGATIVE) SARS-CoV-2 RNA ([place]) (NEGATIVE) 08/05/20 Range/Units 20:06 WBC (4.23-9.07) K/mm3 RBC (4.63-6.08) M/mm3 Hgb (13.7-17.5) gm/dl Hct (40.1-51.0) % MCV (79.0-92.2) fl MCH (25.7-32.2) pg MCHC (32.2-35.5) g/dl RDW Std Deviation (35.1-43.9) fL Plt Count (163-337) K/mm3 MPV (9.4-12.3) fl Neut % (Auto) (34.0-67.9) % Lymph % (Auto) (21.8-53.1) % [place] % (Auto) (5.3-12.2) % Eos % (Auto) (0.8-7.0) Baso % (Auto) (0.1-1.2) % Neut # (Auto) (1.78-5.38) K/mm3 Lymph # (Auto) (1.32-3.57) K/mm3 [place] # (Auto) (0.30-0.82) K/mm3 Eos # (Auto) (0.04-0.54) K/mm3 Baso # (Auto) (0.01-0.08) K/mm3 Manual Slide Review Sodium (136-145) mEq/L Potassium (3.5-5.1) mEq/L Chloride (98-107) mEq/L Carbon Dioxide (21-32) mEq/L Anion Gap (5-15) BUN (7-18) mg/dL Creatinine (0.7-1.3) mg/dL Est Cr Clr Drug Dosing Estimated GFR (MDRD) (>60) mL/min BUN/Creatinine Ratio (14-18) Glucose (70-99) mg/dL Calcium (8.5-10.1) mg/dL Total Bilirubin (0.2-1.0) mg/dL AST (15-37) U/L ALT (16-63) U/L Alkaline Phosphatase (46-116) U/L C-Reactive Protein (<1.0) mg/dL Total Protein (6.4-8.2) g/dl Albumin (3.4-5.0) g/dl Globulin gm/dL Albumin/Globulin Ratio (1-2) Urine Color (Yellow) Urine Appearance (Clear) Urine pH (5.0-8.0) Ur Specific [place] (1.005-1.030) Urine Protein (Negative) Urine Glucose (UA) (Negative) Urine Ketones (Negative) Urine Occult Blood (Negative) Urine Nitrite (Negative) Urine Bilirubin (Negative) Urine Urobilinogen (0.2-1.0) Ur Leukocyte Esterase (Negative) Urine RBC (0-5) /hpf Urine WBC (0-5) /hpf Ur Squamous Epith Cells (0-5) /hpf Urine Bacteria (FEW) /hpf Urine Mucus (FEW) /hpf Influenza Type A RNA Negative (NEGATIVE) Influenza Type B RNA Negative (NEGATIVE) SARS-CoV-2 RNA ([place]) Negative (NEGATIVE) Meds: Medications Generic Name Dose Route Start Last Admin Trade Name Freq PRN Reason Stop Dose Admin Acetaminophen 650 mg 08/05/20 21:10 Acetaminophen 325 Mg Tab PO Q4H PRN Pain (Mild 1-3)/fever Apixaban 5 mg 08/05/20 21:30 Apixaban 5 Mg Tab PO BID [place] Aspirin 81 mg 08/06/20 09:00 Aspirin 81 Mg Tab.Ec PO DAILY [place] Bisacodyl 5 mg 08/05/20 21:23 Bisacodyl 5 Mg Tab PO DAILY PRN Constipation Bupropion HCl 150 mg 08/06/20 09:00 Bupropion 150 Mg Tab.Sr PO DAILY [place] Calcium Carbonate/Glycine 400 mg 08/05/20 21:23 Calcium Carbonate 500 Mg Tab.Chew PO BID PRN Indigestion Carvedilol 12.5 mg 08/06/20 09:00 Carvedilol 12.5 Mg Tab PO BID [facility] Digoxin 125 mcg 08/06/20 12:00 Digoxin 125 Mcg Tab PO DAILY@1200 [facility] Docusate Sodium 100 mg 08/05/20 21:23 Docusate Sodium 100 Mg Cap PO BID PRN Constipation Fenofibrate 145 mg 08/06/20 09:00 Fenofibrate Nanocrystallized 145 Mg Tab PO DAILY [place] Finasteride 5 mg 08/06/20 21:00 Finasteride 5 Mg Tab PO BEDTIME [place] Sodium Chloride 1,000 mls @ 75 mls/hr 08/05/20 21:15 Normal Saline IV 08/06/20 10:34 ASDIRECTED [place] Ceftriaxone Sodium 1 gm/ 100 mls @ 200 mls/hr 08/05/20 21:15 Sodium Chloride IV Q24H [place] Non-Formulary Medication 425 mg 08/06/20 09:00 Cranberry Fruit Extract [Cranberry] PO BID [facility] Non-Formulary Medication 1.5 mg 08/07/20 21:23 Dulaglutide [Trulicity] SQ WE [facility] Non-Formulary Medication 90 mg 08/06/20 09:00 Duloxetine PO DAILY [facility] Non-Formulary Medication 20 unit 08/06/20 09:00 Insulin Lispro SQ TID [place] Ondansetron HCl 4 mg 08/05/20 21:10 Ondansetron 4 Mg Tab.Dis PO Q4H PRN nausea, able to take PO Oxycodone HCl 5 mg 08/05/20 21:10 Oxycodone 5 Mg Tab PO Q4H PRN Pain (moderate 4-6) Simvastatin 20 mg 08/06/20 21:00 Simvastatin 20 Mg Tab PO BEDTIME [facility] Sodium Chloride 10 ml 08/05/20 16:05 08/05/20 18:50 Sodium Chloride 0.9% 10 Ml Syringe FLUSH 10 ml ASDIRECTED PRN Administration Keep Vein Open Discontinued Medications Generic Name Dose Route Start Last Admin Trade Name Freq PRN Reason Stop Dose Admin Ceftriaxone Sodium 2 gm/ 0 gm 08/05/20 19:55 Lidocaine HCl 4.2 ml IM 08/05/20 19:56 ONETIME ONE Sodium Chloride 1,000 mls @ 999 mls/hr 08/05/20 17:27 08/05/20 18:49 Normal Saline IV 08/05/20 18:27 999 mls/hr ONETIME ONE Administration Lidocaine HCl Confirm 08/05/20 18:58 Xylocaine-Mpf 1% Administered 08/05/20 18:59 Dose 2 mls @ as directed .ROUTE .K-MED ONE - Re-Assessments/Exams Free Text/Narrative Re-Assessment/Exam: 08/05/20 16:25 Patient presents to the ER for his lethargy and Wei catheter drainage. We did get a culture of the drainage, we will get some basic labs for further evaluation. 08/05/20 19:22 There was an extended wait time for labs as the patient was a very hard IV start. Eventually SKIN SPECIALIST was called in to start IV and we did get some labs, CBC demonstrates a white blood cell count elevated 11.25, 71% neutrophils on the auto differential. Metabolic panel demonstrates a BUN of 55, creatinine 1.6, GFR low at 43, CRP is elevated 11.1. Still awaiting urinalysis. 08/05/20 19:56 The patient's suprapubic region is quite taut, but does not seem to be causing h im a lot of distress. For now, we will have nursing staff try to troubleshoot his catheter, apparently he must of had the catheter redone sometime recently. The alf staff says that he drinks water at the alf frequently throughout the day, and nursing staff here has given him 3 or 4 glasses of water due to him being a hard IV start. The IV site that we did have blew. We will try to get as much urine as we can for a sample however the scant amount of urine in the Wei tube was fairly cloudy. Nursing staff was able to advance a Wei catheter enough, so it was draining appropriately. I have discussed his case with Dr. Chew and he would like the SKIN SPECIALIST to come and put in a PICC or central line, and that he be given some IV antibiotics and fluids. 08/05/20 20:24 I was able to speak with Veronica Cruz CRNA on-call, and she states that she would not have time to place a PICC line tonight, she does not do central lines. She states that the ER doctor, or someone else would have to do it if it is urgently needed tonight otherwise she can consult in the morning. I have called our surgeon, Dr. Stahl in for central line placement, he would be glad to do so request bedside ultrasound and patient be moved to trauma bay for a little bit extra room. 08/05/20 21:35 Dr. Stahl was in to evaluate the patient, and was able to place a central line. Departure - Departure Time of Disposition: 20:25 Disposition: Admitted As Inpatient 67 Condition: Good Clinical Impression: UTI (urinary tract infection) Qualifiers: Urinary tract infection type: catheter-associated UTI Indwelling urinary catheter type: indwelling urethral catheter Encounter type: initial encounter Qualified Code(s): T83.511A - Infection and inflammatory reaction due to indwelling urethral catheter, initial encounter - Discharge Information *PRESCRIPTION DRUG MONITORING PROGRAM REVIEWED*: No *COPY OF PRESCRIPTION DRUG MONITORING REPORT IN PATIENT OLIVIA: No Referrals: Brian Omalley MD [Primary Care Provider] - Forms: ED Department Discharge Sepsis Event Note (ED) - Evaluation Sepsis Screening Result: No Definite Risk - Focused Exam Vital Signs: Vital Signs Temp Pulse Resp BP Pulse Ox 08/05/20 15:37 96.2 F L 84 16 103/71 98 - My Orders Last 24 Hours: My Active Orders 08/05/20 16:05 Peripheral IV Care [RC] . DIRECTED Sodium Chloride 0.9% [Saline Flush] 10 ml FLUSH ASDIRECTED PRN Peripheral IV Insertion Adult [OM.PC] Routine 08/05/20 16:21 CULTURE WOUND [RM] Stat 08/05/20 19:24 Bladder Scan [RC] ASDIRECTED 08/05/20 20:08 CULTURE URINE [RM] Routine 08/05/20 20:21 Consult to Physician [CONS] Stat 08/05/20 20:22 Notify Provider Consults [RC] ASDIRECTED 08/05/20 20:27 CULTURE BLOOD [BC] Stat 08/05/20 21:32 Chest 1V-Tube Placement Chk NC [CR] Stat - Assessment/Plan Last 24 Hours: My Active Orders 08/05/20 16:05 Peripheral IV Care [RC] . DIRECTED Sodium Chloride 0.9% [Saline Flush] 10 ml FLUSH ASDIRECTED PRN Peripheral IV Insertion Adult [OM.PC] Routine 08/05/20 16:21 CULTURE WOUND [RM] Stat 08/05/20 19:24 Bladder Scan [RC] ASDIRECTED 08/05/20 20:08 CULTURE URINE [RM] Routine 08/05/20 20:21 Consult to Physician [CONS] Stat 08/05/20 20:22 Notify Provider Consults [RC] ASDIRECTED 08/05/20 20:27 CULTURE BLOOD [BC] Stat 08/05/20 21:32 Chest 1V-Tube Placement Chk NC [CR] Stat
[2020-08-05] MEDS ORDERED: Sodium Chloride 0.9% 1,000 ML IV ONE (17:27)
--- NOTE | 2020-08-05 18:57 | PCM.SN.2 ---
- Free Text/Narrative Note: Anesthesia Note: Start: 1799 Stop: 1852 Anesthesia requested for IV start. 20 gauge to right upper arm placed via US. 10ml's of blood pulled back for lab studies. IV flushed with 20ml's of normal saline. Patient tolerated procedure well. Total attempts equals 3. Veronica SOLIMAN
[2020-08-05] MEDS ORDERED: Lidocaine 1% 2 ML ONE (18:58)
[2020-08-05] MEDS ORDERED: cefTRIAXone 2 GM, Lidocaine 1% 4.2 ML IM ONE ×2 (19:55)
[2020-08-05 20:56] LABS: CORONAVIRUS COVID-19 NAA NEGATIVE (NEGATIVE)
[2020-08-05] MEDS ORDERED: oxyCODONE 5 MG Tab PO PRN (21:10)
[2020-08-05] MEDS ORDERED: Acetaminophen 325 MG Tab PO PRN (21:10)
[2020-08-05] MEDS ORDERED: Ondansetron 4 MG Tab.DIS PO PRN (21:10)
[2020-08-05] MEDS ORDERED: Sodium Chloride 0.9% 1,000 ML IV SCH (21:15)
[2020-08-05] MEDS ORDERED: Docusate Sodium 100 MG Cap PO PRN (21:23)
[2020-08-05] MEDS ORDERED: Calcium Carbonate 500 MG Tab.Chew PO PRN (21:23)
[2020-08-05] MEDS ORDERED: Bisacodyl 5 MG Tab PO PRN (21:23)
--- NOTE | 2020-08-05 21:36 | PCM.PRNOTE ---
- Free Text/Narrative Note: Date: 08/05/2020 Procedure: Central line placement Indication: profound hypovolemia with inability to obtain reliable peripheral IV access after multiple attempts Surgeon: Nicholas Stahl MD Findings: left internal jugular triple lumen catheter successfully placed with ultrasound guidance, confirmed with chest x-ray. Detailed Report: The patient was placed supine, in Trendelenburg. The left neck was prepped and draped in sterile fashion. Using bedside ultrasound, the neck was assessed and the left common carotid artery and internal jugular vein were seen. The patient was clearly hypovolemic with substantial variation in caliber of the IJ with respiration, quite collapsible. 2 cc 1% lidocaine was injected intradermally at the site of planned insertion. A large bore hollow needle on a syringe was placed in the vein multiple times using ultrasound with an axial view. Although dark venous blood was aspirated, it was very difficult to successfully place the guidewire. Orienting the ultrasound probe in parallel with the vessel, the tip of the needle was withdrawn into the lumen of the vein and the guidewire placed without resistance. A small stab incision was made at the insertion site. The needle was removed and the dilator passed over the wire. A triple lumen central venous catheter was then placed over the wire with ease. All ports aristides back dark venous blood and flushed without a problem. The catheter was sutured to the skin with silk suture and a sterile dressing was applied. Chest x-ray was obtained which confirmed no complication and proper placement of the catheter. The patient tolerated the procedure well.
[2020-08-05] MEDS: cefTRIAXone 1 GM in Sodium Chloride 0.9% 100 ML IV SCH (22:01)
[2020-08-05] MEDS ORDERED: Apixaban 5 MG Tab PO SCH (23:15)
[2020-08-06] MEDS ORDERED: Apixaban 5 MG Tab ONE (00:01)
[2020-08-06] MEDS: Apixaban 5 MG Tab PO SCH ×3 (00:07→22:23)
--- NOTE | 2020-08-06 08:37 | CR ---
Chest: Frontal view of the chest was obtained. Comparison: Prior chest x-ray of 01/17/18. Displaced fracture is noted within the left sixth rib which appears to be chronic. This may be nonhealed. Left-sided infusion catheter is seen with tip lying slightly within the superior vena cava but not fully advanced in. Lungs otherwise are clear. Heart size and mediastinum are within normal limits. Impression: 1. Left-sided infusion catheter projects slightly into the superior vena cava but is not fully advanced into the superior vena cava. 2. Displaced rib fracture as noted above which appears chronic, difficult to completely confirm healing. 3. No additional abnormality is seen. Diagnostic code #2
[2020-08-06] MEDS ORDERED: Non-Formulary Medication 1 Each (Duloxetine Hcl 60 MG Capsule.Dr) PO SCH (09:00)
[2020-08-06] MEDS ORDERED: CRANBERRY FRUIT EXTRACT 425 MG PO SCH (09:00)
[2020-08-06] MEDS: Insulin Lispro 100 UNIT/ML 10 ML Vial SUBCUT SCH ×2 (09:19→14:24)
[2020-08-06] MEDS: Aspirin 81 MG Tab.EC PO SCH (09:19)
[2020-08-06] MEDS: buPROPion 150 MG Tab.ER PO SCH (09:20)
[2020-08-06] MEDS: Carvedilol 12.5 MG Tab PO SCH ×2 (09:20→22:23)
[2020-08-06] MEDS: DULoxetine 30 MG Cap PO SCH (09:20)
[2020-08-06] MEDS: Fenofibrate Nanocrystallized 145 MG Tab PO SCH (09:21)
[2020-08-06] MEDS ORDERED: Bisacodyl 10 MG Supp RECTAL PRN (10:25)
[2020-08-06] MEDS ORDERED: Acetaminophen 325 MG Tab PO PRN (10:25)
[2020-08-06] MEDS ORDERED: buPROPion 150 MG Tab.ER PO SCH (10:30)
--- NOTE | 2020-08-06 10:33 | PCM.HP.2 ---
H&P History of Present Illness - General Date of Service: 08/06/20 Admit Problem/Dx: Admission Diagnosis/Problem Admission Diagnosis/Problem UTI (urinary tract infection) due to urinary indwelling catheter - History of Present Illness Initial Comments - Free Text/Narative: Mr. Hui is a 74 year-old male with a chronic indwelling wei catheter sent from the [facility] for increasing lethargy and confusion. He was also noted to have a lot of sediment and no urinary flow from the wei catheter. During my interview, the patient was unable to tell me where he was. He could not tell me the month or the year. He had very poor IV access and required central line placement in the ER. He denied having any fever, chills or malaise. He also denied having any nausea, vomiting, abdominal pain or any diarrhea. He says he has had a Wei catheter for several weeks and is due for a replacement. He follows with a urologist as an outpatient. His urology appointment is not due until August 23, 2020. - Related Data Allergies/Adverse Reactions: Allergies Allergy/AdvReac Type Severity Reaction Status Date / Time No Known Allergies Allergy Verified 08/05/20 23:05 Home Medications: Home Meds Acetaminophen [Tylenol] 650 mg PO BEDTIME 01/19/15 [History] Acetaminophen [Tylenol] 650 mg PO BID PRN 01/19/15 [History] Apixaban [Eliquis] 5 mg PO BID 01/19/15 [History] Cholecalciferol (Vitamin D3) [Vitamin D3] 5,000 unit PO DAILY 01/19/15 [History] Fenofibrate Nanocrystallized [Tricor] 145 mg PO DAILY 01/19/15 [History] Finasteride [Proscar] 5 mg PO BEDTIME 01/19/15 [History] Furosemide 60 mg PO BID 01/19/15 [History] Multivitamin [Daily Multiple Vitamin] 1 tab PO DAILY 01/19/15 [History] Potassium Chloride [Klor-Con] 20 meq PO BID 01/19/15 [History] Simvastatin [Zocor] 20 mg PO BEDTIME 01/19/15 [History] Spironolactone 50 mg PO BID 01/19/15 [History] carvediloL [Carvedilol] 12.5 mg PO BID 01/19/15 [History] Digoxin [Lanoxin] 125 mcg PO DAILY 01/17/18 [History] Lisinopril 5 mg PO DAILY 01/17/18 [History] Docusate Sodium [Colace] 100 mg PO BID PRN #30 01/21/18 [Rx] Aspirin [Adult Aspirin] 81 mg PO DAILY 05/07/18 [History] Benzocaine/Menthol [Cepacol Sore Throat Lozenge] 1 each MM TID PRN 04/29/20 [History] Cranberry Fruit Extract [Cranberry] 425 mg PO BID 04/29/20 [History] Docusate Sodium/Sennosides [Senna Plus] 2 tab PO BID 04/29/20 [History] Dulaglutide [Trulicity] 1.5 mg SQ WE 04/29/20 [History] Ibuprofen 200 mg PO TIDMEALS 04/29/20 [History] Insulin Lispro [HumaLOG] 20 unit SQ TIDMEALS 04/29/20 [History] Loperamide HCl [Imodium A-D] 2 - 4 mg PO ASDIRECTED PRN 04/29/20 [History] Propylene Glycol/PEG 400/Pf [Systane 0.3-0.4% Eye Drops] 1 each OP TID PRN 04/29/20 [History] metOLazone [Metolazone] 2.5 mg PO Q48H 04/29/20 [History] Bacitracin [Bacitracin Oint 1 GM] 1 applic TOP DAILY 08/05/20 [History] Bisacodyl [Gentle Laxative] 10 mg RECTAL DAILY PRN 08/05/20 [History] Calcium Carbonate [Tums] 400 mg PO BID PRN 08/05/20 [History] bisacodyL [Dulcolax] 5 mg PO DAILY PRN 08/05/20 [History] DULoxetine HCl [Duloxetine HCl] 90 mg PO DAILY 08/06/20 [History] Insulin Glarg,Human.Rec.Analog [Lantus] 25 units SQ DAILY 08/06/20 [History] buPROPion HCL [Wellbutrin Xl] 150 mg PO DAILY 08/06/20 [History] Past Medical History Other HEENT History: Mucopurulent conjunctivitis bilateral. Dry eye syndrome of bilateral lacrimal glands Cardiovascular History: Reports: Blood Clots/VTE/DVT, Heart Failure, High Cholesterol, Hypertension, PVD Respiratory History: Reports: COPD Other Respiratory History: Hypoxemia - Chronic oxygen use 2-3L Gastrointestinal History: Reports: Other (See Below) Other Gastrointestinal History: binge eating disorder Genitourinary History: Reports: BPH, Retention, Urinary Other Genitourinary History: Indwelling Catheter. Obstructive & reflux uropathy. Urinary Calculi Musculoskeletal History: Reports: Fracture Psychiatric History: Reports: Depression, Eating Disorders Other Psychiatric History: Restlessness & Agitation Endocrine/Metabolic History: Reports: Diabetes, Type II, Obesity/BMI 30+ Hematologic History: Reports: Anticoagulation Therapy Dermatologic History: Reports: Other (See Below) Other Dermatologic History: MRSA infection R) foot - Infectious Disease History Infectious Disease History: Reports: Chicken Pox, Measles, MRSA, Mumps, Rubella, Scarlet Fever - Past Surgical History Head Surgeries/Procedures: Reports: None Cardiovascular Surgical History: Reports: None Male Surgical History: Reports: None Endocrine Surgical History: Reports: None Musculoskeletal Surgical History: Reports: None Other Musculoskeletal Surgeries/Procedures:: hip surgery after fx Social & Family History - Family History Family Medical History: No Pertinent Family History - Tobacco Use Tobacco Use Status *Q: Former Tobacco User Used Tobacco, but Quit: Yes Month/Year Tobacco Last Used: 2009 Second Hand Smoke Exposure: No - Caffeine Use Caffeine Use: Reports: None - Recreational Drug Use Recreational Drug Use: No - Living Situation & Occupation Living situation: Reports: Single, Extended Care Facility ([facility]) Occupation: Retired H&P Review of Systems - Review of Systems: Review Of Systems: See Below Free Text/Narrative: General: He denies any fevers, chills or malaise CVS: He denies any chest pain, orthopnea or PND. He has lower extremity edema Lungs: He denies any cough, wheezes or shortness of breath Abdomen: As per HPI Genitourinary:no dysuria, frequency or urgency. neuro: he has some tremors in his upper extremities. Exam - Exam Exam: See Below - Vital Signs Vital Signs: Last Vital Signs Temp 96.6 F L 08/06/20 07:25 Pulse 75 08/06/20 09:20 Resp 18 08/06/20 07:25 BP 135/93 H 08/06/20 09:20 Pulse Ox 98 08/06/20 07:25 Weight: 286 lb 3.2 oz - Exam Physical Exam Comments:: General: He is an obese elderly male. Able to answer some questions. In no acute distress CVS: S1-S2 appreciated irregular rate. No murmurs rubs or gallops lungs: clear bilaterally. no rales or wheezes. pa: soft, non tender. bowel sounds are present ext: no clubbing or cyanosis. lymphedema in both lower extremities. One open ulcers on the plantar aspect of the right foot measuring about 2cm X 1cm. Neuro: moves all extremities. - Patient Data Lab Results Last 24 hrs: Laboratory Results - last 24 hr 08/05/20 08/05/20 08/05/20 Range/Units 18:40 18:40 20:00 WBC 11.25 H (4.23-9.07) K/mm3 RBC 4.42 L (4.63-6.08) M/mm3 Hgb 13.0 L D (13.7-17.5) gm/dl Hct 41.0 (40.1-51.0) % MCV 92.8 H (79.0-92.2) fl MCH 29.4 (25.7-32.2) pg MCHC 31.7 L (32.2-35.5) g/dl RDW Std Deviation 44.4 H (35.1-43.9) fL Plt Count 233 D (163-337) K/mm3 MPV 11.9 (9.4-12.3) fl Neut % (Auto) 71.1 H (34.0-67.9) % Lymph % (Auto) 18.0 L (21.8-53.1) % [place] % (Auto) 8.2 (5.3-12.2) % Eos % (Auto) 2.1 (0.8-7.0) Baso % (Auto) 0.3 (0.1-1.2) % Neut # (Auto) 8.00 H (1.78-5.38) K/mm3 Lymph # (Auto) 2.03 (1.32-3.57) K/mm3 [place] # (Auto) 0.92 H (0.30-0.82) K/mm3 Eos # (Auto) 0.24 (0.04-0.54) K/mm3 Baso # (Auto) 0.03 (0.01-0.08) K/mm3 Manual Slide Review Sodium 138 (136-145) mEq/L Potassium 3.8 (3.5-5.1) mEq/L Chloride 96 L (98-107) mEq/L Carbon Dioxide 32 (21-32) mEq/L Anion Gap 13.8 (5-15) BUN 55 H D (7-18) mg/dL Creatinine 1.6 H (0.7-1.3) mg/dL Est Cr Clr Drug Dosing TNP Estimated GFR (MDRD) 43 (>60) mL/min BUN/Creatinine Ratio 34.4 H (14-18) Glucose 118 H (70-99) mg/dL POC Glucose (70-99) mg/dL Calcium 9.4 (8.5-10.1) mg/dL Total Bilirubin 0.7 (0.2-1.0) mg/dL AST 25 (15-37) U/L ALT 25 (16-63) U/L Alkaline Phosphatase 84 (46-116) U/L C-Reactive Protein 11.1 H* (<1.0) mg/dL Total Protein 7.9 (6.4-8.2) g/dl Albumin 3.1 L (3.4-5.0) g/dl Globulin 4.8 gm/dL Albumin/Globulin Ratio 0.7 L (1-2) Urine Color Yellow (Yellow) Urine Appearance Slt cloudy H (Clear) Urine pH 6.0 (5.0-8.0) Ur Specific [place] 1.025 (1.005-1.030) Urine Protein Negative (Negative) Urine Glucose (UA) Negative (Negative) Urine Ketones Negative (Negative) Urine Occult Blood 2+ H (Negative) Urine Nitrite Positive H (Negative) Urine Bilirubin Negative (Negative) Urine Urobilinogen 0.2 (0.2-1.0) Ur Leukocyte Esterase 3+ H (Negative) Urine RBC 5-10 H (0-5) /hpf Urine WBC 40-50 H (0-5) /hpf Ur Squamous Epith Cells 0-5 (0-5) /hpf Urine Bacteria Moderate H (FEW) /hpf Urine Mucus Few (FEW) /hpf Influenza Type A RNA (NEGATIVE) Influenza Type B RNA (NEGATIVE) SARS-CoV-2 RNA (BAILEY) (NEGATIVE) MRSA (PCR) 08/05/20 08/05/20 08/06/20 Range/Units 20:06 22:06 07:00 WBC (4.23-9.07) K/mm3 RBC (4.63-6.08) M/mm3 Hgb (13.7-17.5) gm/dl Hct (40.1-51.0) % MCV (79.0-92.2) fl MCH (25.7-32.2) pg MCHC (32.2-35.5) g/dl RDW Std Deviation (35.1-43.9) fL Plt Count (163-337) K/mm3 MPV (9.4-12.3) fl Neut % (Auto) (34.0-67.9) % Lymph % (Auto) (21.8-53.1) % [place] % (Auto) (5.3-12.2) % Eos % (Auto) (0.8-7.0) Baso % (Auto) (0.1-1.2) % Neut # (Auto) (1.78-5.38) K/mm3 Lymph # (Auto) (1.32-3.57) K/mm3 [place] # (Auto) (0.30-0.82) K/mm3 Eos # (Auto) (0.04-0.54) K/mm3 Baso # (Auto) (0.01-0.08) K/mm3 Manual Slide Review Sodium (136-145) mEq/L Potassium (3.5-5.1) mEq/L Chloride (98-107) mEq/L Carbon Dioxide (21-32) mEq/L Anion Gap (5-15) BUN (7-18) mg/dL Creatinine (0.7-1.3) mg/dL Est Cr Clr Drug Dosing Estimated GFR (MDRD) (>60) mL/min BUN/Creatinine Ratio (14-18) Glucose (70-99) mg/dL POC Glucose 174 H (70-99) mg/dL Calcium (8.5-10.1) mg/dL Total Bilirubin (0.2-1.0) mg/dL AST (15-37) U/L ALT (16-63) U/L Alkaline Phosphatase (46-116) U/L C-Reactive Protein (<1.0) mg/dL Total Protein (6.4-8.2) g/dl Albumin (3.4-5.0) g/dl Globulin gm/dL Albumin/Globulin Ratio (1-2) Urine Color (Yellow) Urine Appearance (Clear) Urine pH (5.0-8.0) Ur Specific [place] (1.005-1.030) Urine Protein (Negative) Urine Glucose (UA) (Negative) Urine Ketones (Negative) Urine Occult Blood (Negative) Urine Nitrite (Negative) Urine Bilirubin (Negative) Urine Urobilinogen (0.2-1.0) Ur Leukocyte Esterase (Negative) Urine RBC (0-5) /hpf Urine WBC (0-5) /hpf Ur Squamous Epith Cells (0-5) /hpf Urine Bacteria (FEW) /hpf Urine Mucus (FEW) /hpf Influenza Type A RNA Negative (NEGATIVE) Influenza Type B RNA Negative (NEGATIVE) SARS-CoV-2 RNA ([place]) Negative (NEGATIVE) MRSA (PCR) Positive H 08/06/20 08/06/20 Range/Units 08:09 08:09 WBC 9.35 H (4.23-9.07) K/mm3 RBC 4.06 L (4.63-6.08) M/mm3 Hgb 11.8 L (13.7-17.5) gm/dl Hct 37.4 L (40.1-51.0) % MCV 92.1 (79.0-92.2) fl MCH 29.1 (25.7-32.2) pg MCHC 31.6 L (32.2-35.5) g/dl RDW Std Deviation 44.1 H (35.1-43.9) fL Plt Count 201 (163-337) K/mm3 MPV 11.5 (9.4-12.3) fl Neut % (Auto) 73.5 H (34.0-67.9) % Lymph % (Auto) 16.7 L (21.8-53.1) % [place] % (Auto) 8.0 (5.3-12.2) % Eos % (Auto) 1.3 (0.8-7.0) Baso % (Auto) 0.3 (0.1-1.2) % Neut # (Auto) 6.87 H (1.78-5.38) K/mm3 Lymph # (Auto) 1.56 (1.32-3.57) K/mm3 [place] # (Auto) 0.75 (0.30-0.82) K/mm3 Eos # (Auto) 0.12 (0.04-0.54) K/mm3 Baso # (Auto) 0.03 (0.01-0.08) K/mm3 Manual Slide Review Sodium 138 (136-145) mEq/L Potassium 3.4 L (3.5-5.1) mEq/L Chloride 100 (98-107) mEq/L Carbon Dioxide 30 (21-32) mEq/L Anion Gap 11.4 (5-15) BUN 45 H (7-18) mg/dL Creatinine 1.2 (0.7-1.3) mg/dL Est Cr Clr Drug Dosing 72.66 Estimated GFR (MDRD) 59 (>60) mL/min BUN/Creatinine Ratio 37.5 H (14-18) Glucose 186 H (70-99) mg/dL POC Glucose (70-99) mg/dL Calcium 8.6 (8.5-10.1) mg/dL Total Bilirubin (0.2-1.0) mg/dL AST (15-37) U/L ALT (16-63) U/L Alkaline Phosphatase (46-116) U/L C-Reactive Protein (<1.0) mg/dL Total Protein (6.4-8.2) g/dl Albumin (3.4-5.0) g/dl Globulin gm/dL Albumin/Globulin Ratio (1-2) Urine Color (Yellow) Urine Appearance (Clear) Urine pH (5.0-8.0) Ur Specific [place] (1.005-1.030) Urine Protein (Negative) Urine Glucose (UA) (Negative) Urine Ketones (Negative) Urine Occult Blood (Negative) Urine Nitrite (Negative) Urine Bilirubin (Negative) Urine Urobilinogen (0.2-1.0) Ur Leukocyte Esterase (Negative) Urine RBC (0-5) /hpf Urine WBC (0-5) /hpf Ur Squamous Epith Cells (0-5) /hpf Urine Bacteria (FEW) /hpf Urine Mucus (FEW) /hpf Influenza Type A RNA (NEGATIVE) Influenza Type B RNA (NEGATIVE) SARS-CoV-2 RNA ([place]) (NEGATIVE) MRSA (PCR) Result Diagrams: 08/06/20 08:09 08/06/20 08:09 Mickey Results Last 24 hrs: Microbiology 08/05/20 20:00 Urine Culture - Preliminary Urine, Wei Cath (Indwelling) Gram Negative Rods Sepsis Event Note - Evaluation Sepsis Screening Result: No Definite Risk - Focused Exam Vital Signs: Vital Signs Temp Pulse Resp BP Pulse Ox 08/06/20 09:20 75 135/93 H 08/06/20 07:25 96.6 F L 75 18 135/93 H 98 08/06/20 03:06 97.0 F 85 16 113/51 L 100 08/06/20 00:28 96.4 F L 53 L 14 106/51 L 100 08/05/20 22:57 97.7 F 60 14 119/71 100 - Problem List (1) Sepsis due to gram-negative UTI SNOMED Code(s): 851103367 ICD Code: A41.50 - GRAM-NEGATIVE SEPSIS, UNSPECIFIED; N39.0 - URINARY TRACT INFECTION, SITE NOT SPECIFIED Status: Acute Current Visit: Yes Problem Details: Admit patient to the medical floor for IV antibiotics Replace Wei catheter Check UA, cultures and sensitivity. (2) Obstructive uropathy SNOMED Code(s): 7681671 ICD Code: N13.9 - OBSTRUCTIVE AND REFLUX UROPATHY, UNSPECIFIED Status: Acute Current Visit: No Problem Details: Patient has a chronic indwelling Wei catheter. Follows with urology as outpatient (3) Atrial fibrillation SNOMED Code(s): 90367340 ICD Code: I48.91 - UNSPECIFIED ATRIAL FIBRILLATION Status: Chronic Current Visit: No Problem Details: Currently rate controlled. Patient on chronic anticoagulation Qualifiers: Atrial fibrillation type: unspecified Qualified Code(s): I48.91 - Unspecified atrial fibrillation (4) Chronic venous insufficiency SNOMED Code(s): 88652418, 54247242 ICD Code: I87.2 - VENOUS INSUFFICIENCY (CHRONIC) (PERIPHERAL) Status: Chronic Priority: Medium Current Visit: No (5) Hyperlipidemia SNOMED Code(s): 71116801 ICD Code: E78.5 - HYPERLIPIDEMIA, UNSPECIFIED Status: Chronic Current Visit: No Qualifiers: Hyperlipidemia type: unspecified Qualified Code(s): E78.5 - Hyperlipidemia, unspecified (6) Hypertension SNOMED Code(s): 45811387 ICD Code: I10 - ESSENTIAL (PRIMARY) HYPERTENSION Status: Chronic Current Visit: No Problem Details: Stable, continue home meds. Qualifiers: Hypertension type: essential hypertension Qualified Code(s): I10 - Essential (primary) hypertension (7) MRSA carrier SNOMED Code(s): 026969771 ICD Code: Z22.322 - CARRIER OR SUSPECTED CARRIER OF METHICILLIN RESIS STAPH Status: Chronic Current Visit: No Problem Details: Counter precautions. (8) PVD (peripheral vascular disease) SNOMED Code(s): 966887966 ICD Code: I73.9 - PERIPHERAL VASCULAR DISEASE, UNSPECIFIED Status: Chronic Current Visit: No Problem Details: Patient has a chronic nonhealing ulcer on his right foot. We will consult PT for wound care recommendations. (9) Type 2 diabetes mellitus SNOMED Code(s): 40545987 ICD Code: E11.9 - TYPE 2 DIABETES MELLITUS WITHOUT COMPLICATIONS Status: Chronic Priority: High Current Visit: No Problem Details: Continue home insulin dose. Blood sugar checks before every meal and at bedtime Qualifiers: Diabetes mellitus fci insulin use: with fci use Diabetes me llitus complication status: with kidney complications Diabetes mellitus c omplication detail: with chronic kidney disease Chronic kidney disease stage: stage 3 (moderate) (10) Full code status SNOMED Code(s): 927943073 ICD Code: Z78.9 - OTHER SPECIFIED HEALTH STATUS Status: Acute Current Visit: Yes (11) DVT prophylaxis SNOMED Code(s): 380911653, 495887509 ICD Code: Z29.9 - ENCOUNTER FOR PROPHYLACTIC MEASURES, UNSPECIFIED Status: Acute Current Visit: Yes Problem Details: on DOAC. Problem List Initiated/Reviewed/Updated: Yes Orders Last 24hrs: Active Orders 24 hr Category Date Time Status Patient Status [ADT] Routine ADT 08/05/20 21:10 Active Blood Glucose Check, Bedside [RC] WITHMEALSANDBED Care 08/05/20 21:38 Active Central Line Assessment [RC] Q2H Care 08/05/20 21:20 Active Notify Provider Consults [RC] ASDIRECTED Care 08/05/20 20:22 Active Oxygen Therapy [RC] PRN Care 08/05/20 21:10 Active Up With Assistance [RC] QSHIFT Care 08/05/20 21:10 Active VTE/DVT Education [RC] DAILY Care 08/05/20 21:10 Active Vital Signs [RC] Q4HR Care 08/05/20 21:10 Active Consult to Physician [CONS] Stat Cons 08/05/20 20:21 Active Consistent Carbohydrate Diet [DIET] Diet 08/06/20 Breakfast Active CULTURE BLOOD [BC] Stat Lab 08/05/20 21:22 Received CULTURE MRSA [RM] Stat Lab 08/05/20 22:06 Received CULTURE URINE [RM] Routine Lab 08/05/20 20:00 Results CULTURE WOUND [RM] Stat Lab 08/05/20 16:10 Results Acetaminophen [TylenoL] Med 08/06/20 10:25 Ordered 650 mg PO BID PRN Acetaminophen [TylenoL] Med 08/05/20 21:10 Active 650 mg PO Q4H PRN Apixaban [Eliquis] Med 08/05/20 23:45 Active 5 mg PO BID Aspirin [Halfprin] Med 08/06/20 09:00 Active 81 mg PO DAILY Calcium Carbonate [Tums] Med 08/05/20 21:23 Active 500 mg PO BID PRN DULoxetine [Cymbalta] Med 08/06/20 09:00 Active 90 mg PO DAILY Digoxin [Lanoxin] Med 08/06/20 12:00 Active 125 mcg PO DAILY@1200 Docusate Sodium [Colace] Med 08/05/20 21:23 Active 100 mg PO BID PRN Dulaglutide [Trulicity] Med 08/07/20 21:23 Pending 1.5 mg SQ WE Fenofibrate Nanocrystallized [Tricor] Med 08/06/20 09:00 Active 145 mg PO DAILY Finasteride [Proscar] Med 08/06/20 21:00 Active 5 mg PO BEDTIME Insulin Glarg,Human.Rec.Analog [LantUS] Med 08/06/20 10:30 Ordered 25 unit SUBCUT DAILY Insulin Lispro [HumaLOG] Med 08/06/20 07:00 Active 20 unit SUBCUT TIDAC Ondansetron [Zofran ODT] Med 08/05/20 21:10 Active 4 mg PO Q4H PRN Potassium Chloride [Klor-Con M20] Med 08/06/20 10:32 Once 40 meq PO ONETIME ONE Simvastatin [Zocor] Med 08/06/20 21:00 Active 20 mg PO BEDTIME Sodium Chloride 0.9% [Normal Saline] 1,000 ml Med 08/05/20 21:15 Active IV ASDIRECTED Sodium Chloride 0.9% [Saline Flush] Med 08/05/20 16:05 Active 10 ml FLUSH ASDIRECTED PRN Spironolactone [Spironolactone] Med 08/06/20 10:30 Ordered 50 mg PO BID bisacodyL [Dulcolax] Med 08/06/20 10:25 Ordered 10 mg RECTAL DAILY PRN bisacodyL [Dulcolax] Med 08/05/20 21:23 Active 5 mg PO DAILY PRN buPROPion [Wellbutrin XL] Med 08/06/20 09:00 Active 150 mg PO DAILY buPROPion [Wellbutrin XL] Med 08/06/20 10:30 Ordered 150 mg PO DAILY carvediloL [Coreg] Med 08/06/20 09:00 Active 12.5 mg PO BID cefTRIAXone [Rocephin] 1 gm Med 08/05/20 22:00 Active Sodium Chloride 0.9% [Normal Saline] 100 ml IV Q24H oxyCODONE Med 08/05/20 21:10 Active 5 mg PO Q4H PRN Peripheral IV Insertion Adult [OM.PC] Routine Oth 08/05/20 16:05 Ordered Renew/Continue Central Line Access [OM.PC] Routine Oth 08/06/20 03:46 Ordered Renew/Continue Urinary Catheter [OM.PC] Routine Oth 08/06/20 00:23 Ordered Resuscitation Status Routine Resus Stat 08/05/20 21:10 Ordered Medication Orders Acetaminophen (Acetaminophen 325 Mg Tab) 650 mg PO Q4H PRN PRN Reason: Pain (Mild 1-3)/fever Acetaminophen (Acetaminophen 325 Mg Tab) 650 mg PO BID PRN PRN Reason: Pain Apixaban (Apixaban 5 Mg Tab) 5 mg PO BID [facility] Last Admin: 08/06/20 09:19 Dose: 5 mg Documented by: Admin: 08/06/20 00:07 Dose: 5 mg Documented by: SALMA Aspirin (Aspirin 81 Mg Tab.Ec) 81 mg PO DAILY [facility] Last Admin: 08/06/20 09:19 Dose: 81 mg Documented by: SHALA Bisacodyl (Bisacodyl 5 Mg Tab) 5 mg PO DAILY PRN PRN Reason: Constipation Bisacodyl (Bisacodyl 10 Mg Supp) 10 mg RECTAL DAILY PRN PRN Reason: Constipation Bupropion HCl (Bupropion 150 Mg Tab.Er) 150 mg PO DAILY [facility] Last Admin: 08/06/20 09:20 Dose: 150 mg Documented by: SHALA Bupropion HCl (Bupropion 150 Mg Tab.Er) 150 mg PO DAILY [facility] Calcium Carbonate/Glycine (Calcium Carbonate 500 Mg Tab.Chew) 500 mg PO BID PRN PRN Reason: Indigestion Carvedilol (Carvedilol 12.5 Mg Tab) 12.5 mg PO BID [facility] Last Admin: 08/06/20 09:20 Dose: 12.5 mg Documented by: SHALA Digoxin (Digoxin 125 Mcg Tab) 125 mcg PO DAILY@1200 [facility] Docusate Sodium (Docusate Sodium 100 Mg Cap) 100 mg PO BID PRN PRN Reason: Constipation Duloxetine HCl (Duloxetine 30 Mg Cap) 90 mg PO DAILY [facility] Last Admin: 08/06/20 09:20 Dose: 90 mg Documented by: SHALA Fenofibrate (Fenofibrate Nanocrystallized 145 Mg Tab) 145 mg PO DAILY [facility] Last Admin: 08/06/20 09:21 Dose: 145 mg Documented by: SHALA Finasteride (Finasteride 5 Mg Tab) 5 mg PO BEDTIME [facility] Sodium Chloride (Normal Saline) 1,000 mls @ 75 mls/hr IV ASDIRECTED [facility] Stop: 08/06/20 10:34 Last Admin: 08/06/20 07:03 Dose: 75 mls/hr Documented by: ASLMA Ceftriaxone Sodium 1 gm/ (Sodium Chloride) 100 mls @ 200 mls/hr IV Q24H [facility] Last Admin: 08/05/20 22:01 Dose: 200 mls/hr Documented by: ANNMARIE Insulin Glargine (Insulin Glarg,Human.Rec.Analog 100 Unit/Ml) 25 unit SUBCUT DAILY [facility] Insulin Human Lispro (Insulin Lispro 100 Unit/Ml 10 Ml Vial) 20 unit SUBCUT TIDAC [facility] Last Admin: 08/06/20 09:19 Dose: 20 units Documented by: SHALA Non-Formulary Medication (Dulaglutide [Trulicity]) 1.5 mg SQ WE [facility] Non-Formulary Medication (Spironolactone [Spironolactone]) 50 mg PO BID [facility] Ondansetron HCl (Ondansetron 4 Mg Tab.Dis) 4 mg PO Q4H PRN PRN Reason: nausea, able to take PO Oxycodone HCl (Oxycodone 5 Mg Tab) 5 mg PO Q4H PRN PRN Reason: Pain (moderate 4-6) Potassium Chloride (Potassium Chloride 20 Meq Tab.Er) 40 meq PO ONETIME ONE Stop: 08/06/20 10:33 Simvastatin (Simvastatin 20 Mg Tab) 20 mg PO BEDTIME [place] Sodium Chloride (Sodium Chloride 0.9% 10 Ml Syringe) 10 ml FLUSH ASDIRECTED PRN PRN Reason: Keep Vein Open Last Admin: 08/05/20 18:50 Dose: 10 ml Documented by: DORIS - Mortality Measure Prognosis:: Poor
[2020-08-06] MEDS ORDERED: Potassium Chloride 20 MEQ Tab.ER PO ONE (11:00)
[2020-08-06] MEDS: Spironolactone 25 MG Tab PO SCH ×2 (11:51→22:22)
[2020-08-06] MEDS: Digoxin 125 MCG Tab PO SCH (11:51)
--- NOTE | 2020-08-06 14:15 | PCM.PN ---
- General Info Date of Service: 08/06/20 Subjective Update: Pt feels better than he did yesterday. He is more alert and talkative. He wants to go home LU. He pulled out his central line this morning. later in the day he was redirected and advised to stay for one more day of IV Abx. - Patient Data Vitals - Most Recent: Last Vital Signs Temp 96.3 F L 08/06/20 11:06 Pulse 67 08/06/20 11:51 Resp 16 08/06/20 11:06 BP 119/51 L 08/06/20 11:06 Pulse Ox 100 08/06/20 11:06 Weight - Most Recent: 286 lb I&O - Last 24 Hours: Intake & Output 08/05/20 08/06/20 08/06/20 22:59 06:59 14:59 Intake Total 1257 Output Total 120 Balance 7C @ Lab Results Last 24 Hours: Laboratory Results - last 24 hr 08/05/20 08/05/20 08/05/20 Range/Units 18:40 18:40 20:00 WBC 11.25 H (4.23-9.07) K/mm3 RBC 4.42 L (4.63-6.08) M/mm3 Hgb 13.0 L D (13.7-17.5) gm/dl Hct 41.0 (40.1-51.0) % MCV 92.8 H (79.0-92.2) fl MCH 29.4 (25.7-32.2) pg MCHC 31.7 L (32.2-35.5) g/dl RDW Std Deviation 44.4 H (35.1-43.9) fL Plt Count 233 D (163-337) K/mm3 MPV 11.9 (9.4-12.3) fl Neut % (Auto) 71.1 H (34.0-67.9) % Lymph % (Auto) 18.0 L (21.8-53.1) % Keith % (Auto) 8.2 (5.3-12.2) % Eos % (Auto) 2.1 (0.8-7.0) Baso % (Auto) 0.3 (0.1-1.2) % Neut # (Auto) 8.00 H (1.78-5.38) K/mm3 Lymph # (Auto) 2.03 (1.32-3.57) K/mm3 Keith # (Auto) 0.92 H (0.30-0.82) K/mm3 Eos # (Auto) 0.24 (0.04-0.54) K/mm3 Baso # (Auto) 0.03 (0.01-0.08) K/mm3 Manual Slide Review Sodium 138 (136-145) mEq/L Potassium 3.8 (3.5-5.1) mEq/L Chloride 96 L (98-107) mEq/L Carbon Dioxide 32 (21-32) mEq/L Anion Gap 13.8 (5-15) BUN 55 H D (7-18) mg/dL Creatinine 1.6 H (0.7-1.3) mg/dL Est Cr Clr Drug Dosing TNP Estimated GFR (MDRD) 43 (>60) mL/min BUN/Creatinine Ratio 34.4 H (14-18) Glucose 118 H (70-99) mg/dL POC Glucose (70-99) mg/dL Calcium 9.4 (8.5-10.1) mg/dL Total Bilirubin 0.7 (0.2-1.0) mg/dL AST 25 (15-37) U/L ALT 25 (16-63) U/L Alkaline Phosphatase 84 (46-116) U/L C-Reactive Protein 11.1 H* (<1.0) mg/dL Total Protein 7.9 (6.4-8.2) g/dl Albumin 3.1 L (3.4-5.0) g/dl Globulin 4.8 gm/dL Albumin/Globulin Ratio 0.7 L (1-2) Urine Color Yellow (Yellow) Urine Appearance Slt cloudy H (Clear) Urine pH 6.0 (5.0-8.0) Ur Specific [place] 1.025 (1.005-1.030) Urine Protein Negative (Negative) Urine Glucose (UA) Negative (Negative) Urine Ketones Negative (Negative) Urine Occult Blood 2+ H (Negative) Urine Nitrite Positive H (Negative) Urine Bilirubin Negative (Negative) Urine Urobilinogen 0.2 (0.2-1.0) Ur Leukocyte Esterase 3+ H (Negative) Urine RBC 5-10 H (0-5) /hpf Urine WBC 40-50 H (0-5) /hpf Ur Squamous Epith Cells 0-5 (0-5) /hpf Urine Bacteria Moderate H (FEW) /hpf Urine Mucus Few (FEW) /hpf Influenza Type A RNA (NEGATIVE) Influenza Type B RNA (NEGATIVE) SARS-CoV-2 RNA ([place]) (NEGATIVE) MRSA (PCR) 08/05/20 08/05/20 08/06/20 Range/Units 20:06 22:06 07:00 WBC (4.23-9.07) K/mm3 RBC (4.63-6.08) M/mm3 Hgb (13.7-17.5) gm/dl Hct (40.1-51.0) % MCV (79.0-92.2) fl MCH (25.7-32.2) pg MCHC (32.2-35.5) g/dl RDW Std Deviation (35.1-43.9) fL Plt Count (163-337) K/mm3 MPV (9.4-12.3) fl Neut % (Auto) (34.0-67.9) % Lymph % (Auto) (21.8-53.1) % Keith % (Auto) (5.3-12.2) % Eos % (Auto) (0.8-7.0) Baso % (Auto) (0.1-1.2) % Neut # (Auto) (1.78-5.38) K/mm3 Lymph # (Auto) (1.32-3.57) K/mm3 Keith # (Auto) (0.30-0.82) K/mm3 Eos # (Auto) (0.04-0.54) K/mm3 Baso # (Auto) (0.01-0.08) K/mm3 Manual Slide Review Sodium (136-145) mEq/L Potassium (3.5-5.1) mEq/L Chloride (98-107) mEq/L Carbon Dioxide (21-32) mEq/L Anion Gap (5-15) BUN (7-18) mg/dL Creatinine (0.7-1.3) mg/dL Est Cr Clr Drug Dosing Estimated GFR (MDRD) (>60) mL/min BUN/Creatinine Ratio (14-18) Glucose (70-99) mg/dL POC Glucose 174 H (70-99) mg/dL Calcium (8.5-10.1) mg/dL Total Bilirubin (0.2-1.0) mg/dL AST (15-37) U/L ALT (16-63) U/L Alkaline Phosphatase (46-116) U/L C-Reactive Protein (<1.0) mg/dL Total Protein (6.4-8.2) g/dl Albumin (3.4-5.0) g/dl Globulin gm/dL Albumin/Globulin Ratio (1-2) Urine Color (Yellow) Urine Appearance (Clear) Urine pH (5.0-8.0) Ur Specific [place] (1.005-1.030) Urine Protein (Negative) Urine Glucose (UA) (Negative) Urine Ketones (Negative) Urine Occult Blood (Negative) Urine Nitrite (Negative) Urine Bilirubin (Negative) Urine Urobilinogen (0.2-1.0) Ur Leukocyte Esterase (Negative) Urine RBC (0-5) /hpf Urine WBC (0-5) /hpf Ur Squamous Epith Cells (0-5) /hpf Urine Bacteria (FEW) /hpf Urine Mucus (FEW) /hpf Influenza Type A RNA Negative (NEGATIVE) Influenza Type B RNA Negative (NEGATIVE) SARS-CoV-2 RNA ([place]) Negative (NEGATIVE) MRSA (PCR) Positive H 08/06/20 08/06/20 08/06/20 Range/Units 08:09 08:09 11:20 WBC 9.35 H (4.23-9.07) K/mm3 RBC 4.06 L (4.63-6.08) M/mm3 Hgb 11.8 L (13.7-17.5) gm/dl Hct 37.4 L (40.1-51.0) % MCV 92.1 (79.0-92.2) fl MCH 29.1 (25.7-32.2) pg MCHC 31.6 L (32.2-35.5) g/dl RDW Std Deviation 44.1 H (35.1-43.9) fL Plt Count 201 (163-337) K/mm3 MPV 11.5 (9.4-12.3) fl Neut % (Auto) 73.5 H (34.0-67.9) % Lymph % (Auto) 16.7 L (21.8-53.1) % Keith % (Auto) 8.0 (5.3-12.2) % Eos % (Auto) 1.3 (0.8-7.0) Baso % (Auto) 0.3 (0.1-1.2) % Neut # (Auto) 6.87 H (1.78-5.38) K/mm3 Lymph # (Auto) 1.56 (1.32-3.57) K/mm3 Keith # (Auto) 0.75 (0.30-0.82) K/mm3 Eos # (Auto) 0.12 (0.04-0.54) K/mm3 Baso # (Auto) 0.03 (0.01-0.08) K/mm3 Manual Slide Review Sodium 138 (136-145) mEq/L Potassium 3.4 L (3.5-5.1) mEq/L Chloride 100 (98-107) mEq/L Carbon Dioxide 30 (21-32) mEq/L Anion Gap 11.4 (5-15) BUN 45 H (7-18) mg/dL Creatinine 1.2 (0.7-1.3) mg/dL Est Cr Clr Drug Dosing 72.66 Estimated GFR (MDRD) 59 (>60) mL/min BUN/Creatinine Ratio 37.5 H (14-18) Glucose 186 H (70-99) mg/dL POC Glucose 171 H (70-99) mg/dL Calcium 8.6 (8.5-10.1) mg/dL Total Bilirubin (0.2-1.0) mg/dL AST (15-37) U/L ALT (16-63) U/L Alkaline Phosphatase (46-116) U/L C-Reactive Protein (<1.0) mg/dL Total Protein (6.4-8.2) g/dl Albumin (3.4-5.0) g/dl Globulin gm/dL Albumin/Globulin Ratio (1-2) Urine Color (Yellow) Urine Appearance (Clear) Urine pH (5.0-8.0) Ur Specific [place] (1.005-1.030) Urine Protein (Negative) Urine Glucose (UA) (Negative) Urine Ketones (Negative) Urine Occult Blood (Negative) Urine Nitrite (Negative) Urine Bilirubin (Negative) Urine Urobilinogen (0.2-1.0) Ur Leukocyte Esterase (Negative) Urine RBC (0-5) /hpf Urine WBC (0-5) /hpf Ur Squamous Epith Cells (0-5) /hpf Urine Bacteria (FEW) /hpf Urine Mucus (FEW) /hpf Influenza Type A RNA (NEGATIVE) Influenza Type B RNA (NEGATIVE) SARS-CoV-2 RNA ([place]) (NEGATIVE) MRSA (PCR) Mickey Results Last 24 Hours: Microbiology 08/05/20 20:00 Urine Culture - Preliminary Urine, Tovar Cath ([place]) Gram Negative Rods Med Orders - Current: Current Medications Acetaminophen (Acetaminophen 325 Mg Tab) 650 mg PO Q4H PRN PRN Reason: Pain (Mild 1-3)/fever Apixaban (Apixaban 5 Mg Tab) 5 mg PO BID [facility] Last Admin: 08/06/20 09:19 Dose: 5 mg Documented by: Aspirin (Aspirin 81 Mg Tab.Ec) 81 mg PO DAILY [facility] Last Admin: 08/06/20 09:19 Dose: 81 mg Documented by: Bisacodyl (Bisacodyl 5 Mg Tab) 5 mg PO DAILY PRN PRN Reason: Constipation Bisacodyl (Bisacodyl 10 Mg Supp) 10 mg RECTAL DAILY PRN PRN Reason: Constipation Bupropion HCl (Bupropion 150 Mg Tab.Er) 150 mg PO DAILY [facility] Last Admin: 08/06/20 09:20 Dose: 150 mg Documented by: Calcium Carbonate/Glycine (Calcium Carbonate 500 Mg Tab.Chew) 500 mg PO BID PRN PRN Reason: Indigestion Carvedilol (Carvedilol 12.5 Mg Tab) 12.5 mg PO BID [facility] Last Admin: 08/06/20 09:20 Dose: 12.5 mg Documented by: Digoxin (Digoxin 125 Mcg Tab) 125 mcg PO DAILY@1200 [facility] Last Admin: 08/06/20 11:51 Dose: 125 mcg Documented by: Docusate Sodium (Docusate Sodium 100 Mg Cap) 100 mg PO BID PRN PRN Reason: Constipation Duloxetine HCl (Duloxetine 30 Mg Cap) 90 mg PO DAILY [facility] Last Admin: 08/06/20 09:20 Dose: 90 mg Documented by: Fenofibrate (Fenofibrate Nanocrystallized 145 Mg Tab) 145 mg PO DAILY [facility] Last Admin: 08/06/20 09:21 Dose: 145 mg Documented by: Finasteride (Finasteride 5 Mg Tab) 5 mg PO BEDTIME [facility] Ceftriaxone Sodium 1 gm/ (Sodium Chloride) 100 mls @ 200 mls/hr IV Q24H [facility] Last Admin: 08/05/20 22:01 Dose: 200 mls/hr Documented by: Insulin Glargine (Insulin Glarg,Human.Rec.Analog 100 Unit/Ml) 25 unit SUBCUT DAILY [facility] Insulin Human Lispro (Insulin Lispro 100 Unit/Ml 10 Ml Vial) 20 unit SUBCUT TIDAC [facility] Last Admin: 08/06/20 09:19 Dose: 20 units Documented by: Ondansetron HCl (Ondansetron 4 Mg Tab.Dis) 4 mg PO Q4H PRN PRN Reason: nausea, able to take PO Oxycodone HCl (Oxycodone 5 Mg Tab) 5 mg PO Q4H PRN PRN Reason: Pain (moderate 4-6) (Dulaglutide [ Trulicity] 1.5 Mg/0. 5 Ml Pen.Injctr) Patient's Own Med 0 each SUBCUT We@0900 [facility] Simvastatin (Simvastatin 20 Mg Tab) 20 mg PO BEDTIME [facility] Sodium Chloride (Sodium Chloride 0.9% 10 Ml Syringe) 10 ml FLUSH ASDIRECTED PRN PRN Reason: Keep Vein Open Last Admin: 08/05/20 18:50 Dose: 10 ml Documented by: Spironolactone (Spironolactone 25 Mg Tab) 50 mg PO BID [facility] Last Admin: 08/06/20 11:51 Dose: 50 mg Documented by: Discontinued Medications Acetaminophen (Acetaminophen 325 Mg Tab) 650 mg PO BID PRN PRN Reason: Pain Apixaban (Apixaban 5 Mg Tab) Confirm Administered Dose 5 mg .ROUTE .STK-MED ONE Stop: 08/06/20 00:02 Last Admin: 08/06/20 04:26 Dose: Not Given Documented by: Bupropion HCl (Bupropion 150 Mg Tab.Er) 150 mg PO DAILY [facility] Ceftriaxone Sodium 2 gm/ (Lidocaine HCl 4.2 ml) 0 gm IM ONETIME ONE Stop: 08/05/20 19:56 Sodium Chloride (Normal Saline) 1,000 mls @ 999 mls/hr IV ONETIME ONE Stop: 08/05/20 18:27 Last Admin: 08/05/20 18:49 Dose: 999 mls/hr Documented by: Lidocaine HCl (Xylocaine-Mpf 1%) Confirm Administered Dose 2 mls @ as directed .ROUTE .STK-MED ONE Stop: 08/05/20 18:59 Sodium Chloride (Normal Saline) 1,000 mls @ 75 mls/hr IV ASDIRECTED [place] Stop: 08/06/20 10:34 Last Admin: 08/06/20 07:03 Dose: 75 mls/hr Documented by: Non-Formulary Medication (Duloxetine Hcl) 90 mg PO DAILY [facility] Potassium Chloride (Potassium Chloride 20 Meq Tab.Er) 40 meq PO ONETIME ONE Stop: 08/06/20 11:01 Last Admin: 08/06/20 11:51 Dose: 40 meq Documented by: - Exam Central Line Total Time: 0Days 14Hours Physical Findings Comments:: General: Obese elderly male. He is awake and alert. Oriented to self and place but not date or time. CVS: S1 S2 is appreciated, regular rate and rhythm. No murmurs rubs or gallops Lungs: Clear without any rales or wheezes Abdomen: Soft obese nontender bowel are present Extremities: no clubbing or cyanosis. He has chronic lower extremity edema and discoloration to both legs. There is a 1 x 2cm superficial wound on the plantar aspect of the right foot with some pus drainage. Neuro: He is able to move all extremities. Gait not examined. He has decreased sensation in both legs Psych: He has a stable mood and affect. - Patient Data Lab Results Last 24 hrs: Laboratory Results - last 24 hr 08/05/20 08/05/20 08/05/20 Range/Units 18:40 18:40 20:00 WBC 11.25 H (4.23-9.07) K/mm3 RBC 4.42 L (4.63-6.08) M/mm3 Hgb 13.0 L D (13.7-17.5) gm/dl Hct 41.0 (40.1-51.0) % MCV 92.8 H (79.0-92.2) fl MCH 29.4 (25.7-32.2) pg MCHC 31.7 L (32.2-35.5) g/dl RDW Std Deviation 44.4 H (35.1-43.9) fL Plt Count 233 D (163-337) K/mm3 MPV 11.9 (9.4-12.3) fl Neut % (Auto) 71.1 H (34.0-67.9) % Lymph % (Auto) 18.0 L (21.8-53.1) % Keith % (Auto) 8.2 (5.3-12.2) % Eos % (Auto) 2.1 (0.8-7.0) Baso % (Auto) 0.3 (0.1-1.2) % Neut # (Auto) 8.00 H (1.78-5.38) K/mm3 Lymph # (Auto) 2.03 (1.32-3.57) K/mm3 Keith # (Auto) 0.92 H (0.30-0.82) K/mm3 Eos # (Auto) 0.24 (0.04-0.54) K/mm3 Baso # (Auto) 0.03 (0.01-0.08) K/mm3 Manual Slide Review Sodium 138 (136-145) mEq/L Potassium 3.8 (3.5-5.1) mEq/L Chloride 96 L (98-107) mEq/L Carbon Dioxide 32 (21-32) mEq/L Anion Gap 13.8 (5-15) BUN 55 H D (7-18) mg/dL Creatinine 1.6 H (0.7-1.3) mg/dL Est Cr Clr Drug Dosing TNP Estimated GFR (MDRD) 43 (>60) mL/min BUN/Creatinine Ratio 34.4 H (14-18) Glucose 118 H (70-99) mg/dL POC Glucose (70-99) mg/dL Calcium 9.4 (8.5-10.1) mg/dL Total Bilirubin 0.7 (0.2-1.0) mg/dL AST 25 (15-37) U/L ALT 25 (16-63) U/L Alkaline Phosphatase 84 (46-116) U/L C-Reactive Protein 11.1 H* (<1.0) mg/dL Total Protein 7.9 (6.4-8.2) g/dl Albumin 3.1 L (3.4-5.0) g/dl Globulin 4.8 gm/dL Albumin/Globulin Ratio 0.7 L (1-2) Urine Color Yellow (Yellow) Urine Appearance Slt cloudy H (Clear) Urine pH 6.0 (5.0-8.0) Ur Specific [place] 1.025 (1.005-1.030) Urine Protein Negative (Negative) Urine Glucose (UA) Negative (Negative) Urine Ketones Negative (Negative) Urine Occult Blood 2+ H (Negative) Urine Nitrite Positive H (Negative) Urine Bilirubin Negative (Negative) Urine Urobilinogen 0.2 (0.2-1.0) Ur Leukocyte Esterase 3+ H (Negative) Urine RBC 5-10 H (0-5) /hpf Urine WBC 40-50 H (0-5) /hpf Ur Squamous Epith Cells 0-5 (0-5) /hpf Urine Bacteria Moderate H (FEW) /hpf Urine Mucus Few (FEW) /hpf Influenza Type A RNA (NEGATIVE) Influenza Type B RNA (NEGATIVE) SARS-CoV-2 RNA ([place]) (NEGATIVE) MRSA (PCR) 08/05/20 08/05/20 08/06/20 Range/Units 20:06 22:06 07:00 WBC (4.23-9.07) K/mm3 RBC (4.63-6.08) M/mm3 Hgb (13.7-17.5) gm/dl Hct (40.1-51.0) % MCV (79.0-92.2) fl MCH (25.7-32.2) pg MCHC (32.2-35.5) g/dl RDW Std Deviation (35.1-43.9) fL Plt Count (163-337) K/mm3 MPV (9.4-12.3) fl Neut % (Auto) (34.0-67.9) % Lymph % (Auto) (21.8-53.1) % Keith % (Auto) (5.3-12.2) % Eos % (Auto) (0.8-7.0) Baso % (Auto) (0.1-1.2) % Neut # (Auto) (1.78-5.38) K/mm3 Lymph # (Auto) (1.32-3.57) K/mm3 Keith # (Auto) (0.30-0.82) K/mm3 Eos # (Auto) (0.04-0.54) K/mm3 Baso # (Auto) (0.01-0.08) K/mm3 Manual Slide Review Sodium (136-145) mEq/L Potassium (3.5-5.1) mEq/L Chloride (98-107) mEq/L Carbon Dioxide (21-32) mEq/L Anion Gap (5-15) BUN (7-18) mg/dL Creatinine (0.7-1.3) mg/dL Est Cr Clr Drug Dosing Estimated GFR (MDRD) (>60) mL/min BUN/Creatinine Ratio (14-18) Glucose (70-99) mg/dL POC Glucose 174 H (70-99) mg/dL Calcium (8.5-10.1) mg/dL Total Bilirubin (0.2-1.0) mg/dL AST (15-37) U/L ALT (16-63) U/L Alkaline Phosphatase (46-116) U/L C-Reactive Protein (<1.0) mg/dL Total Protein (6.4-8.2) g/dl Albumin (3.4-5.0) g/dl Globulin gm/dL Albumin/Globulin Ratio (1-2) Urine Color (Yellow) Urine Appearance (Clear) Urine pH (5.0-8.0) Ur Specific [place] (1.005-1.030) Urine Protein (Negative) Urine Glucose (UA) (Negative) Urine Ketones (Negative) Urine Occult Blood (Negative) Urine Nitrite (Negative) Urine Bilirubin (Negative) Urine Urobilinogen (0.2-1.0) Ur Leukocyte Esterase (Negative) Urine RBC (0-5) /hpf Urine WBC (0-5) /hpf Ur Squamous Epith Cells (0-5) /hpf Urine Bacteria (FEW) /hpf Urine Mucus (FEW) /hpf Influenza Type A RNA Negative (NEGATIVE) Influenza Type B RNA Negative (NEGATIVE) SARS-CoV-2 RNA ([place]) Negative (NEGATIVE) MRSA (PCR) Positive H 08/06/20 08/06/20 08/06/20 Range/Units 08:09 08:09 11:20 WBC 9.35 H (4.23-9.07) K/mm3 RBC 4.06 L (4.63-6.08) M/mm3 Hgb 11.8 L (13.7-17.5) gm/dl Hct 37.4 L (40.1-51.0) % MCV 92.1 (79.0-92.2) fl MCH 29.1 (25.7-32.2) pg MCHC 31.6 L (32.2-35.5) g/dl RDW Std Deviation 44.1 H (35.1-43.9) fL Plt Count 201 (163-337) K/mm3 MPV 11.5 (9.4-12.3) fl Neut % (Auto) 73.5 H (34.0-67.9) % Lymph % (Auto) 16.7 L (21.8-53.1) % Keith % (Auto) 8.0 (5.3-12.2) % Eos % (Auto) 1.3 (0.8-7.0) Baso % (Auto) 0.3 (0.1-1.2) % Neut # (Auto) 6.87 H (1.78-5.38) K/mm3 Lymph # (Auto) 1.56 (1.32-3.57) K/mm3 Keith # (Auto) 0.75 (0.30-0.82) K/mm3 Eos # (Auto) 0.12 (0.04-0.54) K/mm3 Baso # (Auto) 0.03 (0.01-0.08) K/mm3 Manual Slide Review Sodium 138 (136-145) mEq/L Potassium 3.4 L (3.5-5.1) mEq/L Chloride 100 (98-107) mEq/L Carbon Dioxide 30 (21-32) mEq/L Anion Gap 11.4 (5-15) BUN 45 H (7-18) mg/dL Creatinine 1.2 (0.7-1.3) mg/dL Est Cr Clr Drug Dosing 72.66 Estimated GFR (MDRD) 59 (>60) mL/min BUN/Creatinine Ratio 37.5 H (14-18) Glucose 186 H (70-99) mg/dL POC Glucose 171 H (70-99) mg/dL Calcium 8.6 (8.5-10.1) mg/dL Total Bilirubin (0.2-1.0) mg/dL AST (15-37) U/L ALT (16-63) U/L Alkaline Phosphatase (46-116) U/L C-Reactive Protein (<1.0) mg/dL Total Protein (6.4-8.2) g/dl Albumin (3.4-5.0) g/dl Globulin gm/dL Albumin/Globulin Ratio (1-2) Urine Color (Yellow) Urine Appearance (Clear) Urine pH (5.0-8.0) Ur Specific [place] (1.005-1.030) Urine Protein (Negative) Urine Glucose (UA) (Negative) Urine Ketones (Negative) Urine Occult Blood (Negative) Urine Nitrite (Negative) Urine Bilirubin (Negative) Urine Urobilinogen (0.2-1.0) Ur Leukocyte Esterase (Negative) Urine RBC (0-5) /hpf Urine WBC (0-5) /hpf Ur Squamous Epith Cells (0-5) /hpf Urine Bacteria (FEW) /hpf Urine Mucus (FEW) /hpf Influenza Type A RNA (NEGATIVE) Influenza Type B RNA (NEGATIVE) SARS-CoV-2 RNA ([place]) (NEGATIVE) MRSA (PCR) Result Diagrams: 08/06/20 08:09 08/06/20 08:09 Mickey Results Last 24 hrs: Microbiology 08/05/20 20:00 Urine Culture - Preliminary Urine, Tovar Cath ([place]) Gram Negative Rods Sepsis Event Note - Evaluation Sepsis Screening Result: No Definite Risk - Focused Exam Vital Signs: Vital Signs Temp Pulse Resp BP Pulse Ox 08/06/20 11:51 67 08/06/20 11:06 96.3 F L 67 16 119/51 L 100 08/06/20 09:20 75 135/93 H 08/06/20 07:25 96.6 F L 75 18 135/93 H 98 08/06/20 03:06 97.0 F 85 16 113/51 L 100 - Problem List & Annotations (1) Sepsis due to gram-negative UTI SNOMED Code(s): 528493030 Code(s): A41.50 - GRAM-NEGATIVE SEPSIS, UNSPECIFIED; N39.0 - URINARY TRACT INFECTION, SITE NOT SPECIFIED Status: Acute Current Visit: Yes Annotation/Comment:: Continue IV Rocephin Follow urine cultures and sensitivity. We are unable to change his Tovar catheter due to difficulty in placement. Patient has an appointment to follow-up with his urologist within the next week to have the catheter changed. (2) Obstructive uropathy SNOMED Code(s): 2052142 Code(s): N13.9 - OBSTRUCTIVE AND REFLUX UROPATHY, UNSPECIFIED Status: Acute Current Visit: No Annotation/Comment:: Patient has a chronic indwelling Tovar catheter. Follows with urology as outpatient (3) Atrial fibrillation SNOMED Code(s): 38915317 Code(s): I48.91 - UNSPECIFIED ATRIAL FIBRILLATION Status: Chronic Current Visit: No Qualifiers: Atrial fibrillation type: unspecified Qualified Code(s): I48.91 - Unspecified atrial fibrillation Annotation/Comment:: Currently rate controlled. Patient on chronic anticoagulation (4) Chronic venous insufficiency SNOMED Code(s): 99919056, 88391294 Code(s): I87.2 - VENOUS INSUFFICIENCY (CHRONIC) (PERIPHERAL) Status: Chronic Priority: Medium Current Visit: No (5) Hyperlipidemia SNOMED Code(s): 52055511 Code(s): E78.5 - HYPERLIPIDEMIA, UNSPECIFIED Status: Chronic Current Visit: No Qualifiers: Hyperlipidemia type: unspecified Qualified Code(s): E78.5 - Hyperlipidemia, unspecified (6) Hypertension SNOMED Code(s): 58161055 Code(s): I10 - ESSENTIAL (PRIMARY) HYPERTENSION Status: Chronic Current Visit: No Qualifiers: Hypertension type: essential hypertension Qualified Code(s): I10 - Essential (primary) hypertension Annotation/Comment:: Stable, continue home meds. (7) MRSA carrier SNOMED Code(s): 529577225 Code(s): Z22.322 - CARRIER OR SUSPECTED CARRIER OF METHICILLIN RESIS STAPH Status: Chronic Current Visit: No Annotation/Comment:: Counter precautions. (8) PVD (peripheral vascular disease) SNOMED Code(s): 530404938 Code(s): I73.9 - PERIPHERAL VASCULAR DISEASE, UNSPECIFIED Status: Chronic Current Visit: No Annotation/Comment:: Wound care dressing as per PT recommendations. (9) Type 2 diabetes mellitus SNOMED Code(s): 35269321 Code(s): E11.9 - TYPE 2 DIABETES MELLITUS WITHOUT COMPLICATIONS Status: Chronic Priority: High Current Visit: No Qualifiers: Diabetes mellitus superintendent terminal insulin use: with fpc use Diabetes mellitus complication status: with kidney complications Diabetes mellitus complication detail: with chronic kidney disease Chronic kidney disease stage: stage 3 (moderate) Annotation/Comment:: Continue home insulin dose. Blood sugar checks before every meal and at bedtime (10) Full code status SNOMED Code(s): 703597575 Code(s): Z78.9 - OTHER SPECIFIED HEALTH STATUS Status: Acute Current Visit: Yes (11) DVT prophylaxis SNOMED Code(s): 833697813, 655157279 Code(s): Z29.9 - ENCOUNTER FOR PROPHYLACTIC MEASURES, UNSPECIFIED Status: Acute Current Visit: Yes Annotation/Comment:: on DOAC. - Problem List Review Problem List Initiated/Reviewed/Updated: Yes - My Orders Last 24 Hours: My Active Orders 08/05/20 21:10 Patient Status [ADT] Routine Oxygen Therapy [RC] PRN Up With Assistance [RC] QSHIFT VTE/DVT Education [RC] DAILY Vital Signs [RC] Q4HR Acetaminophen [TylenoL] 650 mg PO Q4H PRN Ondansetron [Zofran ODT] 4 mg PO Q4H PRN oxyCODONE 5 mg PO Q4H PRN 08/05/20 21:23 Calcium Carbonate [Tums] 500 mg PO BID PRN Docusate Sodium [Colace] 100 mg PO BID PRN bisacodyL [Dulcolax] 5 mg PO DAILY PRN 08/05/20 21:38 Blood Glucose Check, Bedside [] WITHMEALSANDBED 08/05/20 22:00 cefTRIAXone [Rocephin] 1 gm Sodium Chloride 0.9% [Normal Saline] 100 ml IV Q24H 08/05/20 22:06 CULTURE MRSA [RM] Stat 08/05/20 23:45 Apixaban [Eliquis] 5 mg PO BID 08/06/20 00:23 Renew/Continue Urinary Catheter [OM.PC] Routine 08/06/20 03:46 Renew/Continue Central Line Access [OM.PC] Routine 08/06/20 07:00 Insulin Lispro [HumaLOG] 20 unit SUBCUT TIDAC 08/06/20 09:00 Aspirin [Halfprin] 81 mg PO DAILY DULoxetine [Cymbalta] 90 mg PO DAILY Fenofibrate Nanocrystallized [Tricor] 145 mg PO DAILY buPROPion [Wellbutrin XL] 150 mg PO DAILY carvediloL [Coreg] 12.5 mg PO BID 08/06/20 09:30 Central Line PICC Discontinue [OM.PC] Routine 08/06/20 10:25 bisacodyL [Dulcolax] 10 mg RECTAL DAILY PRN 08/06/20 10:30 Insulin Glarg,Human.Rec.Analog [LantUS] 25 unit SUBCUT DAILY 08/06/20 10:38 Consult to Physical Therapy [PT Evaluation and Treatment] [CONS] Routine 08/06/20 Lunch Consistent Carbohydrate Diet [DIET] Spironolactone [Aldactone] 50 mg PO BID 08/06/20 12:00 Digoxin [Lanoxin] 125 mcg PO DAILY@1200 08/06/20 13:51 Resuscitation Status Routine 08/06/20 14:06 Wound Care [RC] DAILY 08/06/20 21:00 Finasteride [Proscar] 5 mg PO BEDTIME Simvastatin [Zocor] 20 mg PO BEDTIME 08/07/20 09:00 Patient's Own Medication [Ptom] 0 each SUBCUT We@0900 - Plan Plan:: We will plan to send patient back to the [facility] tomorrow to complete a 7-day course of antibiotic.
[2020-08-06] MEDS ORDERED: Insulin Glarg,Human.Rec.Analog 100 Unit/ML SUBCUT SCH (14:30)
[2020-08-06] MEDS: Insulin Glarg,Human.Rec.Analog 100 Unit/ML SUBCUT SCH (17:25)
[2020-08-06] MEDS ORDERED: Simvastatin 20 MG Tab PO SCH (21:00)
[2020-08-06] MEDS ORDERED: Finasteride 5 MG Tab PO SCH (21:00)
[2020-08-06] MEDS: cefTRIAXone 1 GM in Sodium Chloride 0.9% 100 ML IV SCH (22:21)
[2020-08-07] MEDS: Insulin Glarg,Human.Rec.Analog 100 Unit/ML SUBCUT SCH (06:38)
[2020-08-07] MEDS ORDERED: DULAGLUTIDE 1.5 MG/0.5 ML SUBCUT SCH (09:00)
[2020-08-07] MEDS: DULoxetine 30 MG Cap PO SCH (09:17)
[2020-08-07] MEDS: Aspirin 81 MG Tab.EC PO SCH (09:17)
[2020-08-07] MEDS: Apixaban 5 MG Tab PO SCH (09:17)
[2020-08-07] MEDS: Spironolactone 25 MG Tab PO SCH (09:17)
[2020-08-07] MEDS: Carvedilol 12.5 MG Tab PO SCH (09:18)
[2020-08-07] MEDS: buPROPion 150 MG Tab.ER PO SCH (09:18)
[2020-08-07] MEDS: Fenofibrate Nanocrystallized 145 MG Tab PO SCH (09:18)
--- NOTE | 2020-08-07 10:29 | PCM.DCSUM1 ---
Discharge Summary - Hospital Course Diagnosis: Stroke: No - Discharge Data Discharge Date: 08/07/20 Discharge Disposition: DC/Tfer to SNF 03 Condition: Good - Referral to Home Health Primary Care Physician: Brian Omalley MD - Discharge Diagnosis/Problem(s) (1) Sepsis due to gram-negative UTI SNOMED Code(s): 082068647 ICD Code: A41.50 - GRAM-NEGATIVE SEPSIS, UNSPECIFIED; N39.0 - URINARY TRACT INFECTION, SITE NOT SPECIFIED Status: Acute Current Visit: Yes Problem Details: Continue IV Rocephin Follow urine cultures and sensitivity. We are unable to change his Wei catheter due to difficulty in placement. Patient has an appointment to follow-up with his urologist within the next week to have the catheter changed. (2) Obstructive uropathy SNOMED Code(s): 6392688 ICD Code: N13.9 - OBSTRUCTIVE AND REFLUX UROPATHY, UNSPECIFIED Status: Acute Current Visit: No Problem Details: Patient has a chronic indwelling Wei catheter. Follows with urology as outpatient (3) Atrial fibrillation SNOMED Code(s): 25846521 ICD Code: I48.91 - UNSPECIFIED ATRIAL FIBRILLATION Status: Chronic Current Visit: No Problem Details: Currently rate controlled. Patient on chronic anticoagulation Qualifiers: Atrial fibrillation type: unspecified Qualified Code(s): I48.91 - Un specified atrial fibrillation (4) Chronic venous insufficiency SNOMED Code(s): 17021262, 64538922 ICD Code: I87.2 - VENOUS INSUFFICIENCY (CHRONIC) (PERIPHERAL) Status: Chronic Priority: Medium Current Visit: No (5) Hyperlipidemia SNOMED Code(s): 88771200 ICD Code: E78.5 - HYPERLIPIDEMIA, UNSPECIFIED Status: Chronic Current Visit: No Qualifiers: Hyperlipidemia type: unspecified Qualified Code(s): E78.5 - Hyperlipidemia, unspecified (6) Hypertension SNOMED Code(s): 45105452 ICD Code: I10 - ESSENTIAL (PRIMARY) HYPERTENSION Status: Chronic Current Visit: No Problem Details: Stable, continue home meds. Qualifiers: Hypertension type: essential hypertension Qualified Code(s): I10 - Essential (primary) hypertension (7) MRSA carrier SNOMED Code(s): 298317790 ICD Code: Z22.322 - CARRIER OR SUSPECTED CARRIER OF METHICILLIN RESIS STAPH Status: Chronic Current Visit: No Problem Details: Counter precautions. (8) PVD (peripheral vascular disease) SNOMED Code(s): 250170299 ICD Code: I73.9 - PERIPHERAL VASCULAR DISEASE, UNSPECIFIED Status: Chronic Current Visit: No Problem Details: Wound care dressing as per PT recommendations. (9) Type 2 diabetes mellitus SNOMED Code(s): 23350776 ICD Code: E11.9 - TYPE 2 DIABETES MELLITUS WITHOUT COMPLICATIONS Status: C hronic Priority: High Current Visit: No Problem Details: Continue home insulin dose. 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 - Patient Summary/Data Consults: Consultations 08/05/20 20:21 Consult to Physician [CONS] Stat 08/06/20 10:38 Consult to Physical Therapy [PT Evaluation and Treatment] [CONS] Routine - Patient Instructions Diet: Diabetic Diet Activity: As Tolerated Driving: Do Not Drive - Discharge Plan *PRESCRIPTION DRUG MONITORING PROGRAM REVIEWED*: No *COPY OF PRESCRIPTION DRUG MONITORING REPORT IN PATIENT OLIVIA: No Prescriptions/Med Rec: RX: Spironolactone [Aldactone] 25 mg PO DAILY #30 tab RX: Insulin Glarg,Human.Rec.Analog [Lantus] 10 unit SUBCUT BIDAC #5 pen Furosemide [Lasix] 40 mg PO DAILY #30 tab Home Medications: Home Meds Acetaminophen [Tylenol] 650 mg PO BID PRN 01/19/15 [History] Apixaban [Eliquis] 5 mg PO BID 01/19/15 [History] Cholecalciferol (Vitamin D3) [Vitamin D3] 5,000 unit PO DAILY 01/19/15 [History] Finasteride [Proscar] 5 mg PO BEDTIME 01/19/15 [History] Potassium Chloride [Klor-Con] 20 meq PO BID 01/19/15 [History] Simvastatin [Zocor] 20 mg PO BEDTIME 01/19/15 [History] carvediloL [Carvedilol] 12.5 mg PO BID 01/19/15 [History] Digoxin [Lanoxin] 125 mcg PO DAILY 01/17/18 [History] Lisinopril 5 mg PO DAILY 01/17/18 [History] Docusate Sodium [Colace] 100 mg PO BID PRN #30 01/21/18 [Rx] Aspirin [Adult Aspirin] 81 mg PO DAILY 05/07/18 [History] Cranberry Fruit Extract [Cranberry] 425 mg PO BID 04/29/20 [History] Docusate Sodium/Sennosides [Senna Plus] 2 tab PO BID 04/29/20 [History] Dulaglutide [Trulicity] 1.5 mg SQ WE 04/29/20 [History] Loperamide HCl [Imodium A-D] 2 - 4 mg PO ASDIRECTED PRN 04/29/20 [History] Propylene Glycol/PEG 400/Pf [Systane 0.3-0.4% Eye Drop] 1 each OP TID PRN 04/29/20 [History] Bisacodyl [Gentle Laxative] 10 mg RECTAL DAILY PRN 08/05/20 [History] Calcium Carbonate [Tums] 400 mg PO BID PRN 08/05/20 [History] bisacodyL [Dulcolax] 5 mg PO DAILY PRN 08/05/20 [History] DULoxetine HCl [Duloxetine HCl] 90 mg PO DAILY 08/06/20 [History] buPROPion HCL [Wellbutrin Xl] 150 mg PO DAILY 08/06/20 [History] Cefdinir [Omnicef] 300 mg PO BID #10 cap 08/07/20 [Rx] DULoxetine [Cymbalta] 90 mg PO DAILY cap 08/07/20 [Rx] Fenofibrate Nanocrystallized [Tricor] 145 mg PO DAILY tablet 08/07/20 [Rx] Furosemide [Lasix] 40 mg PO DAILY #30 tab 08/07/20 [Rx] Insulin Glarg,Human.Rec.Analog [Lantus] 10 unit SUBCUT BIDAC #5 pen 08/07/20 [Rx] Spironolactone [Aldactone] 25 mg PO DAILY #30 tab 08/07/20 [Rx] buPROPion [buPROPion XL] 150 mg PO DAILY tab.er 08/07/20 [Rx] Oxygen Therapy Mode: Nasal Cannula Patient Handouts: Heart Failure Action Plan, Sepsis, Self Care, Adult Forms: ED Department Discharge Referrals: Silviano Henry MD [Ordering Only Provider] - (urologist) Brian Omalley MD [Primary Care Provider] - - Discharge Summary/Plan Comment DC Time >30 min.: Yes Discharge Summary/Plan Comment: Discharge diagnosis: UTI with sepsis Indwelling wei T2DM BPH Dementia Peripheral edema PVD Diabetic right foot wound Disharge medications: See MAR Short history/ hospital course. Pt is a 74 y/o F with an indwelling wei catheter admitted with confusion and change in mentation. He was diagnosed with a UTI. He was treated with rocephin. UA grew gram negative rods. He was switched to omnicef to complete 5 more days of oral Abx. His mentation improved and he was back at baseline. He was discharged back to the SNF in a stable state. I made several medicine changes. I discontinued buprofen and metalozone. I reduced his lantus and lispro. I also changed lasix and aldactone doses to once daily. I also started him on compression wraps to both legs. He was seen by PT regarding the care of his right foot wound. Discharge instructions: Activity as tolerated Diet: diabetic Pt is to follow up with her PCP in the next 1-2 wks. He is to also follow up with his Urologist in the next 1 wk to have his wei catheter changed. - Patient Data Vitals - Most Recent: Last Vital Signs Temp 96.6 F L 08/07/20 07:29 Pulse 98 08/07/20 09:18 Resp 20 08/07/20 07:29 BP 140/69 08/07/20 09:18 Pulse Ox 100 08/07/20 07:29 Weight - Most Recent: 288 lb 8 oz I&O - Last 24 hours: Intake & Output 08/06/20 08/07/20 08/07/20 22:59 06:59 14:59 Intake Total 1120 500 Output Total 56 112% Balance 58f -62% @ Lab Results - Last 24 hrs: Laboratory Results - last 24 hr 05/08/06/20 08/06/20 Range/Units 11:20 17:27 22:13 POC Glucose 171 H 164 H 197 H (70-99) mg/dL 08/07/20 Range/Units 06:20 POC Glucose 158 H (70-99) mg/dL DICK Results - Last 24 hrs: Microbiology 08/05/20 20:00 Urine Culture - Preliminary Urine, Wei Cath (Indwelling) Gram Negative Rods Gram Positive Cocci 08/05/20 22:06 MRSA Culture - Final Nasal/Axilla/Groin (Mrsa) Staphylococcus Aureus 08/05/20 21:22 Aerobic Blood Culture - Preliminary Blood - Venous NO GROWTH AFTER 1 DAY Anaerobic Blood Culture - Preliminary NO GROWTH AFTER 1 DAY Med Orders - Current: Current Medications Acetaminophen (Acetaminophen 325 Mg Tab) 650 mg PO Q4H PRN PRN Reason: Pain (Mild 1-3)/fever Apixaban (Apixaban 5 Mg Tab) 5 mg PO BID [facility] [place] Last Admin: 08/07/20 09:17 Dose: 5 mg Documented by: Aspirin (Aspirin 81 Mg Tab.Ec) 81 mg PO DAILY [facility] [place] Last Admin: 08/07/20 09:17 Dose: 81 mg Documented by: Bisacodyl (Bisacodyl 5 Mg Tab) 5 mg PO DAILY PRN PRN Reason: Constipation Bisacodyl (Bisacodyl 10 Mg Supp) 10 mg RECTAL DAILY PRN PRN Reason: Constipation Last Admin: 08/06/20 15:18 Dose: 10 mg Documented by: Bupropion HCl (Bupropion 150 Mg Tab.Er) 150 mg PO DAILY [facility] [place] Last Admin: 08/07/20 09:18 Dose: 150 mg Documented by: Calcium Carbonate/Glycine (Calcium Carbonate 500 Mg Tab.Chew) 500 mg PO BID PRN PRN Reason: Indigestion Carvedilol (Carvedilol 12.5 Mg Tab) 12.5 mg PO BID [facility] [place] Last Admin: 08/07/20 09:18 Dose: 12.5 mg Documented by: Digoxin (Digoxin 125 Mcg Tab) 125 mcg PO DAILY@1200 [facility] [place] Last Admin: 08/06/20 11:51 Dose: 125 mcg Documented by: Docusate Sodium (Docusate Sodium 100 Mg Cap) 100 mg PO BID PRN PRN Reason: Constipation Duloxetine HCl (Duloxetine 30 Mg Cap) 90 mg PO DAILY [facility] [place] Last Admin: 08/07/20 09:17 Dose: 90 mg Documented by: Fenofibrate (Fenofibrate Nanocrystallized 145 Mg Tab) 145 mg PO DAILY [facility] [place] Last Admin: 08/07/20 09:18 Dose: 145 mg Documented by: Finasteride (Finasteride 5 Mg Tab) 5 mg PO BEDTIME [facility] [place] Last Admin: 08/06/20 22:23 Dose: 5 mg Documented by: Ceftriaxone Sodium 1 gm/ (Sodium Chloride) 100 mls @ 200 mls/hr IV Q24H [facility] [place] Last Admin: 08/06/20 22:21 Dose: 200 mls/hr Documented by: Insulin Glargine (Insulin Glarg,Human.Rec.Analog 100 Unit/Ml) 10 unit SUBCUT BIDAC [facility] [place] Last Admin: 08/07/20 06:38 Dose: 10 units Documented by: Ondansetron HCl (Ondansetron 4 Mg Tab.Dis) 4 mg PO Q4H PRN PRN Reason: nausea, able to take PO Oxycodone HCl (Oxycodone 5 Mg Tab) 5 mg PO Q4H PRN PRN Reason: Pain (moderate 4-6) (Dulaglutide [ Trulicity] 1.5 Mg/0. 5 Ml Pen.Injctr) Patient's Own Med 0 each SUBCUT We@0900 [facility] [place] Last Admin: 08/07/20 09:31 Dose: Not Given Documented by: Simvastatin (Simvastatin 20 Mg Tab) 20 mg PO BEDTIME [facility] [place] Last Admin: 08/06/20 22:22 Dose: 20 mg Documented by: Sodium Chloride (Sodium Chloride 0.9% 10 Ml Syringe) 10 ml FLUSH ASDIRECTED PRN PRN Reason: Keep Vein Open Last Admin: 08/05/20 18:50 Dose: 10 ml Documented by: Spironolactone (Spironolactone 25 Mg Tab) 50 mg PO BID [facility] [place] Last Admin: 08/07/20 09:17 Dose: 50 mg Documented by: Discontinued Medications Acetaminophen (Acetaminophen 325 Mg Tab) 650 mg PO BID PRN PRN Reason: Pain Apixaban (Apixaban 5 Mg Tab) Confirm Administered Dose 5 mg .ROUTE .STK-MED ONE Stop: 08/06/20 00:02 Last Admin: 08/06/20 04:26 Dose: Not Given Documented by: Bupropion HCl (Bupropion 150 Mg Tab.Er) 150 mg PO DAILY [facility] [place] Last Admin: 08/06/20 14:56 Dose: Not Given Documented by: Ceftriaxone Sodium 2 gm/ (Lidocaine HCl 4.2 ml) 0 gm IM ONETIME ONE Stop: 08/05/20 19:56 Last Admin: 08/06/20 20:30 Dose: Not Given Documented by: Sodium Chloride (Normal Saline) 1,000 mls @ 999 mls/hr IV ONETIME ONE Stop: 08/05/20 18:27 Last Admin: 08/05/20 18:49 Dose: 999 mls/hr Documented by: Lidocaine HCl (Xylocaine-Mpf 1%) Confirm Administered Dose 2 mls @ as directed .ROUTE .STK-MED ONE Stop: 08/05/20 18:59 Sodium Chloride (Normal Saline) 1,000 mls @ 75 mls/hr IV ASDIRECTED [facility] [place] Stop: 08/06/20 10:34 Last Admin: 08/06/20 07:03 Dose: 75 mls/hr Documented by: Insulin Human Lispro (Insulin Lispro 100 Unit/Ml 10 Ml Vial) 20 unit SUBCUT TIDAC [facility] [place] Last Admin: 08/06/20 14:24 Dose: Not Given Documented by: Non-Formulary Medication (Duloxetine Hcl) 90 mg PO DAILY [facility] [place] Potassium Chloride (Potassium Chloride 20 Meq Tab.Er) 40 meq PO ONETIME ONE Stop: 08/06/20 11:01 Last Admin: 08/06/20 11:51 Dose: 40 meq Documented by:
[2020-08-07] MEDS: Digoxin 125 MCG Tab PO SCH (11:55)
[2020-08-07 11:56] VITALS: PULSE 86
[2020-08-07 12:06] VITALS: BP 108/53
[2020-08-07] MEDS ORDERED: Insulin Lispro 100 UNIT/ML 10 ML Vial SUBCUT ONE (12:58)
== END 2020-08-07 13:40 ==
LOC: JD.ED 15:28 → INTOOBSV 21:58 → JD.MS 21:58
PROVIDERS: ADMIT Hospitalist; ATTEND Hospitalist
DX: T83.592A Infection and inflammatory reaction due to indwelling ureteral stent, initial encounter (principal); E86.1 Hypovolemia; N39.0 Urinary tract infection, site not specified; A41.50 Gram-negative sepsis, unspecified; R53.83 Other fatigue; B95.62 Methicillin resistant Staphylococcus aureus infection as the cause of diseases classified elsewhere; N13.9 Obstructive and reflux uropathy, unspecified; I48.91 Unspecified atrial fibrillation; I87.2 Venous insufficiency (chronic) (peripheral); E78.5 Hyperlipidemia, unspecified; I73.9 Peripheral vascular disease, unspecified; E11.22 Type 2 diabetes mellitus with diabetic chronic kidney disease; I13.0 Hypertensive heart and chronic kidney disease with heart failure and stage 1 through stage 4 chronic kidney disease, or unspecified chronic kidney disease; N18.30 Chronic kidney disease, stage 3 unspecified; N40.0 Benign prostatic hyperplasia without lower urinary tract symptoms; F03.90 Unspecified dementia, unspecified severity, without behavioral disturbance, psychotic disturbance, mood disturbance, and anxiety; I50.9 Heart failure, unspecified; E11.621 Type 2 diabetes mellitus with foot ulcer; L97.519 Non-pressure chronic ulcer of other part of right foot with unspecified severity; E66.9 Obesity, unspecified; Z68.32 Body mass index [BMI] 32.0-32.9, adult; Z20.822 Contact with and (suspected) exposure to COVID-19; Z87.891 Personal history of nicotine dependence; Z29.9 Encounter for prophylactic measures, unspecified; Z79.82 Long term (current) use of aspirin; Z79.4 Long term (current) use of insulin; Z79.899 Other long term (current) drug therapy; Z78.9 Other specified health status; X58.XXXA Exposure to other specified factors, initial encounter
CPT/HCPCS: 0240U; 36410; 36415; 36556; 51702; 80048; 80053; 81001; 82947; 85025; 86140; 87040; 87070; 87077; 87086; 87088; 87181; 87184; 87186; 87641; 96365; 99100; 99217; 99218; 99284; 99285-25; A9270-GY; G0378; J0696; J1815-GY; J7030; U0002